=== PATIENT | male | born 1955 | race Caucasian/White ===

== ENCOUNTER 2021-11-30 10:35 | Inpatient (IN) ==
--- NOTE | 2021-11-30 11:26 | Emergency Department Note ---
History of Present Illness General Chief complaint: Mental Health Evaluation Stated complaint: MENTAL HEALTH EVALUATION Time Seen by Provider: 11/30/21 10:56 Source: patient Mode of arrival: ambulatory Limitations: no limitations History of Present Illness Provider complaint: Mental health evaluation This is a 66-year-old male presents emergency department for mental health evaluation. Patient was seen and evaluated here over the weekend. Patient does have a history of alcohol abuse but states with the help of his brother he removed all alcohol from his apartment over the weekend. He states he has not had any alcohol since Tuesday. Patient denies any history of DTs or inpatient alcohol withdrawal treatment. Patient states he does not feel shaky or sweaty. He states he is slightly nauseated but he also has not eaten today. Patient states he has had increased depression and anxiety. He denies any thoughts of suicide. Pt seen during a time of high acuity and national emergency pandemic while wea ring PPE. 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 Beliefs That Will Affect Care: None marital status: Single Current Living Situation: Alone Other Information That Helps Us Care for You: No Feels Safe at Home: Yes Safety Concerns: Feels Safe At This Time Assistive Devices: None Review of Systems A total of 10 systems reviewed and were otherwise negative All systems reviewed & are unremarkable except as noted in HPI & below Physical Exam Vital Signs Vital Signs - 24 hr 11/30/21 17:20 Blood Pressure [Right Arm] 181/102 H Blood Pressure Mean [Right Arm] 128 GENERAL: alert, well appearing, well nourished, no distress, non-toxic EYE EXAM: normal conjunctiva, PERRL and EOM's grossly intact OROPHARYNX: no exudate, no erythema, lips, buccal mucosa, and tongue normal and mucous membranes are moist NECK: supple, no nuchal rigidity, no adenopathy, non-tender LUNGS: Clear to auscultation. Normal chest wall mechanics, no w/r/r HEART: no murmurs, S1 normal and S2 normal ABDOMEN: abdomen soft, non-tender, normo-active bowel sounds, no masses, no rebound or guarding. BACK: Back is symmetrical on inspection and there is no deformity, no midline tenderness, no CVA tenderness. SKIN: no rashes and no bruising UPPER EXTREMITIES: upper extremities are grossly normal. FROM, nml pulses b/l. LOWER EXTREMITIES: No pitting edema. FROM, nml pulses b/l. NEURO EXAM: Normal sensorium, cranial nerves II-XII grossly intact, normal speech, no gross weakness of arms, no gross weakness of legs. No pronator drift. Finger to nose intact. Gross sensation intact. Course Course 1749: Patient continues to deny any new or evolving symptoms or concern for tremulousness or alcohol withdrawal. Patient states he did used to take HCTZ for his blood pressure but has not taken that in a long time. Administered Medications Amlodipine Besylate (Amlodipine Besylate 5 Mg Tab) 5 mg PO [facility] Stop: 12/31/21 08:59 Last Admin: 12/01/21 08:26 Dose: 5 mg Documented by: [id number] Enoxaparin Sodium (Enoxaparin Inj 40 Mg/0.4 Ml Syr) 40 mg SQ [facility] Stop: 12/31/21 08:59 Last Admin: 12/01/21 08:26 Dose: 40 mg Documented by: [id number] Folic Acid (Folic Acid 1 Mg Tab) 1 mg PO [facility] Stop: 12/30/21 20:59 Last Admin: 12/01/21 08:26 Dose: 1 mg Documented by: [id number] Admin: 11/30/21 21:45 Dose: 1 mg Documented by: [id number] Thiamine HCl 100 mg/ Syringe 10 mls @ 2 mls[facility] Stop: 12/30/21 20:59 Last Admin: 12/01/21 08:37 Dose: 2 mls/min Documented by: [id number] Admin: 11/30/21 21:44 Dose: 2 mls/min Documented by: [id number] Ceftriaxone Sodium 2,000 mg/ (Dextrose) 70 mls @ 100 mls/hr IV Q24H [facility]; Protocol Stop: 12/11/21 08:59 Last Infusion: 12/01/21 09:07 Dose: 0 mls/hr Documented by: [id number] Admin: 12/01/21 08:25 Dose: 100 mls/hr Documented by: [id number] Lisinopril (Lisinopril 10 Mg Tab) 10 mg PO HS [facility] Stop: 12/30/21 20:59 Last Admin: 11/30/21 21:44 Dose: 10 mg Documented by: [id number] Thiamine HCl (Thiamine Hcl 100 Mg Tab) 100 mg PO QAM [facility] Stop: 12/30/21 20:59 Last Admin: 12/01/21 08:37 Dose: Not Given Documented by: [id number] Admin: 11/30/21 21:44 Dose: 100 mg Documented by: [id number] Discontinued Medications Amlodipine Besylate (Amlodipine Besylate 5 Mg Tab) 5 mg PO NOW ONE Stop: 11/30/21 14:32 Last Admin: 11/30/21 14:33 Dose: 5 mg Documented by: [id number] Cefdinir (Cefdinir 300 Mg Cap) 300 mg PO ONE STA Stop: 11/30/21 13:13 Last Admin: 11/30/21 13:21 Dose: 300 mg Documented by: [id number] Hydrochlorothiazide (Hydrochlorothiazide 25 Mg Tab) 25 mg PO NOW STA Stop: 11/30/21 15:31 Last Admin: 11/30/21 16:14 Dose: 25 mg Documented by: [id number] Lorazepam (Lorazepam 1 Mg Tab) 1 mg SL NOW STA Stop: 11/30/21 13:21 Last Admin: 11/30/21 13:25 Dose: 1 mg Documented by: [id number] Potassium Chloride (Potassium Chloride Crtab 20 Meq Tabcr) 40 meq PO NOW STA Stop: 11/30/21 15:31 Last Admin: 11/30/21 16:14 Dose: 40 meq Documented by: [id number] Potassium Chloride (Potassium Chloride Crtab 20 Meq Tabcr) 40 meq PO NOW ONE Stop: 12/01/21 09:28 Last Admin: 12/01/21 10:05 Dose: 40 meq Documented by: [id number] Medical Decision Making Differential Diagnosis Differential diagnoses considered include mood disorder, infection, hypoglycemia, electrolyte abnormalities, cardiac sources, intracerebral event, toxicologic, neurologic, as well as others. Medical Records Attestation: I reviewed the patient's medical records. Home Medications Current Medication List: was personally reviewed by me Laboratory Data Attestation: I reviewed the patient's lab results. Result diagrams: 12/01/21 06:51 12/01/21 06:51 Lab Results 11/30/21 11/30/21 11/30/21 Range/Units 11:01 11:01 11:27 WBC (4.8-10.8) K/uL RBC (4.7-6.1) M/uL Hgb (14.0-18.0) g/dL Hct (42-52) % MCV (80-100) fL MCH (25-34) pg MCHC (32-36) g/dL RDW Std Deviation (36.4-46.3) fL RDW Coeff of Tiffanie (11.5-14.5) % Plt Count (130-400) K/uL MPV (7.4-10.4) fL Immature Gran % (Auto) % Neut % (Auto) % Lymph % (Auto) % [place] % (Auto) % Eos % (Auto) % Baso % (Auto) % Neut # (Auto) (1.4-6.5) K/uL Lymph # (Auto) (1.2-3.4) K/uL [place] # (Auto) (0.11-0.59) K/uL Eos # (Auto) (0-0.5) K/uL Baso # (Auto) (0-0.2) K/uL Immature Gran # (Auto) (0.00-0.02) K/uL Sodium (136-145) mmol/L Potassium (3.5-5.1) mmol/L Chloride (98-107) mmol/L Carbon Dioxide (21-32) mmol/L Anion Gap (3-11) BUN (6-23) mg/dl Creatinine (0.6-1.4) mg/dl Est Cr Clr Drug Dosing Est GFR ( Amer) ml/min Est GFR (Non-Af Amer) ml/min BUN/Creatinine Ratio (10-20) Glucose (70-99(Fasting)) mg/dl Calcium (8.5-10.1) mg/dl Magnesium (1.7-2.4) mg/dl Total Bilirubin (0.2-1.0) mg/dl AST (13-39) U/L ALT (7-52) U/L Alkaline Phosphatase (34-104) U/L Total Protein (6.0-8.3) gm/dl Albumin (3.4-5.0) gm/dl Globulin (2.5-4.0) gm/dl Albumin/Globulin Ratio (0.9-2) TSH (0.300-4.500) uIu/ml Urine Color Dark Yellow Urine Appearance Clear (Clear) Urine pH 5.5 (4.5-7.5) Ur Specific [place] 1.018 (1.000-1.030) Urine Protein Negative (Negative) Urine Glucose (UA) Negative (Negative) Urine Ketones 2+ H (Negative) Urine Blood Negative (Negative) Urine Nitrite Positive A (Negative) Urine Bilirubin Negative (Negative) Urine Urobilinogen Negative (Negative) Ur Leukocyte Esterase Trace H (Negative) Urine WBC (Auto) 5-10 H (0-5) /hpf Urine RBC (Auto) 0-4 (0-4) /hpf U Hyaline Cast (Auto) 1-5 (0-5) /lpf U Epithel Cells (Auto) 5-10 H (0-5) /lpf Urine Bacteria (Auto) 4+ H (Negative) Salicylates (3.0-30) mg/dl Urine Opiates Screen Neg (Neg) Ur Methadone, Qual Neg (Neg) Acetaminophen (10-30) ug/ml Urine Barbiturates Neg (Neg) Ur Phencyclidine (PCP) Neg (Neg) U Amphetamin/Meth Scrn Neg (Neg) MDMA (Ecstasy) Screen Neg (Neg) U Benzodiazepines Scrn Neg (Neg) Ur Cocaine Metabolite Neg (Neg) U Marijuana (THC) Screen Neg (Neg) Ethyl Alcohol mg/dL (<10.0) mg/dl SARS-CoV-2, RNA, NAAT NEGATIVE (NEGATIVE) 11/30/21 11/30/21 11/30/21 Range/Units 11:37 11:37 11:37 WBC 6.44 (4.8-10.8) K/uL RBC 4.66 L (4.7-6.1) M/uL Hgb 17.0 (14.0-18.0) g/dL Hct 47.7 (42-52) % MCV 102.4 H (80-100) fL MCH 36.5 H (25-34) pg MCHC 35.6 (32-36) g/dL RDW Std Deviation 51.2 H (36.4-46.3) fL RDW Coeff of Tiffanie 13.7 (11.5-14.5) % Plt Count 115 L (130-400) K/uL MPV 9.8 (7.4-10.4) fL Immature Gran % (Auto) 0.2 % Neut % (Auto) 80.3 % Lymph % (Auto) 11.2 % [place] % (Auto) 7.8 % Eos % (Auto) 0.3 % Baso % (Auto) 0.2 % Neut # (Auto) 5.18 (1.4-6.5) K/uL Lymph # (Auto) 0.72 L (1.2-3.4) K/uL [place] # (Auto) 0.50 (0.11-0.59) K/uL Eos # (Auto) 0.02 (0-0.5) K/uL Baso # (Auto) 0.01 (0-0.2) K/uL Immature Gran # (Auto) 0.01 (0.00-0.02) K/uL Sodium 141 (136-145) mmol/L Potassium 3.8 (3.5-5.1) mmol/L Chloride 103 (98-107) mmol/L Carbon Dioxide 25 (21-32) mmol/L Anion Gap 13 H (3-11) BUN 18 (6-23) mg/dl Creatinine 0.89 (0.6-1.4) mg/dl Est Cr Clr Drug Dosing Not Reportable Est GFR ( Amer) 102.5 ml/min Est GFR (Non-Af Amer) 88.5 ml/min BUN/Creatinine Ratio 20.2 H (10-20) Glucose 101 H (70-99(Fasting)) mg/dl Calcium 9.8 (8.5-10.1) mg/dl Magnesium (1.7-2.4) mg/dl Total Bilirubin 1.9 H D (0.2-1.0) mg/dl AST 36 (13-39) U/L ALT 33 (7-52) U/L Alkaline Phosphatase 130 H (34-104) U/L Total Protein 7.3 (6.0-8.3) gm/dl Albumin 4.6 (3.4-5.0) gm/dl Globulin 2.7 (2.5-4.0) gm/dl Albumin/Globulin Ratio 1.7 (0.9-2) TSH 1.799 (0.300-4.500) uIu/ml Urine Color Urine Appearance (Clear) Urine pH (4.5-7.5) Ur Specific [place] (1.000-1.030) Urine Protein (Negative) Urine Glucose (UA) (Negative) Urine Ketones (Negative) Urine Blood (Negative) Urine Nitrite (Negative) Urine Bilirubin (Negative) Urine Urobilinogen (Negative) Ur Leukocyte Esterase (Negative) Urine WBC (Auto) (0-5) /hpf Urine RBC (Auto) (0-4) /hpf U Hyaline Cast (Auto) (0-5) /lpf U Epithel Cells (Auto) (0-5) /lpf Urine Bacteria (Auto) (Negative) Salicylates (3.0-30) mg/dl Urine Opiates Screen (Neg) Ur Methadone, Qual (Neg) Acetaminophen (10-30) ug/ml Urine Barbiturates (Neg) Ur Phencyclidine (PCP) (Neg) U Amphetamin/Meth Scrn (Neg) MDMA (Ecstasy) Screen (Neg) U Benzodiazepines Scrn (Neg) Ur Cocaine Metabolite (Neg) U Marijuana (THC) Screen (Neg) Ethyl Alcohol mg/dL (<10.0) mg/dl SARS-CoV-2, RNA, NAAT (NEGATIVE) 11/30/21 11/30/21 11/30/21 Range/Units 11:37 11:37 11:37 WBC (4.8-10.8) K/uL RBC (4.7-6.1) M/uL Hgb (14.0-18.0) g/dL Hct (42-52) % MCV (80-100) fL MCH (25-34) pg MCHC (32-36) g/dL RDW Std Deviation (36.4-46.3) fL RDW Coeff of Tiffanie (11.5-14.5) % Plt Count (130-400) K/uL MPV (7.4-10.4) fL Immature Gran % (Auto) % Neut % (Auto) % Lymph % (Auto) % [place] % (Auto) % Eos % (Auto) % Baso % (Auto) % Neut # (Auto) (1.4-6.5) K/uL Lymph # (Auto) (1.2-3.4) K/uL [place] # (Auto) (0.11-0.59) K/uL Eos # (Auto) (0-0.5) K/uL Baso # (Auto) (0-0.2) K/uL Immature Gran # (Auto) (0.00-0.02) K/uL Sodium (136-145) mmol/L Potassium (3.5-5.1) mmol/L Chloride (98-107) mmol/L Carbon Dioxide (21-32) mmol/L Anion Gap (3-11) BUN (6-23) mg/dl Creatinine (0.6-1.4) mg/dl Est Cr Clr Drug Dosing Est GFR ( Amer) ml/min Est GFR (Non-Af Amer) ml/min BUN/Creatinine Ratio (10-20) Glucose (70-99(Fasting)) mg/dl Calcium (8.5-10.1) mg/dl Magnesium 1.8 (1.7-2.4) mg/dl Total Bilirubin (0.2-1.0) mg/dl AST (13-39) U/L ALT (7-52) U/L Alkaline Phosphatase (34-104) U/L Total Protein (6.0-8.3) gm/dl Albumin (3.4-5.0) gm/dl Globulin (2.5-4.0) gm/dl Albumin/Globulin Ratio (0.9-2) TSH (0.300-4.500) uIu/ml Urine Color Urine Appearance (Clear) Urine pH (4.5-7.5) Ur Specific [place] (1.000-1.030) Urine Protein (Negative) Urine Glucose (UA) (Negative) Urine Ketones (Negative) Urine Blood (Negative) Urine Nitrite (Negative) Urine Bilirubin (Negative) Urine Urobilinogen (Negative) Ur Leukocyte Esterase (Negative) Urine WBC (Auto) (0-5) /hpf Urine RBC (Auto) (0-4) /hpf U Hyaline Cast (Auto) (0-5) /lpf U Epithel Cells (Auto) (0-5) /lpf Urine Bacteria (Auto) (Negative) Salicylates < 3.0 L (3.0-30) mg/dl Urine Opiates Screen (Neg) Ur Methadone, Qual (Neg) Acetaminophen < 3 L (10-30) ug/ml Urine Barbiturates (Neg) Ur Phencyclidine (PCP) (Neg) U Amphetamin/Meth Scrn (Neg) MDMA (Ecstasy) Screen (Neg) U Benzodiazepines Scrn (Neg) Ur Cocaine Metabolite (Neg) U Marijuana (THC) Screen (Neg) Ethyl Alcohol mg/dL < 10.0 (<10.0) mg/dl SARS-CoV-2, RNA, NAAT (NEGATIVE) Imaging Data Radiologist's Impression: Chest X-Ray 11/30/21 17:53 XR chest 1V portable CLINICAL HISTORY: htn. COMPARISON STUDY: 10/20/2018 TECHNIQUE: 1 view of the chest FINDINGS: Single frontal view of the chest demonstrates the cardiomediastinal silhouette to be within normal limits. The lungs are clear of alveolar opacities. There is no evidence for pleural effusion. There is no evidence for vascular congestion. There is no acute osseous pathology. IMPRESSION: 1. No acute cardiopulmonary disease. ACT 112: Negative or not required by law. Electronically signed by: Tommy Elias M.D. 11/30/2021 6:07 PM ECG Data Attestation: I personally reviewed and interpreted this ECG as follows: Indication: + other Rate (beats per minute): 105 Rhythm: + sinus tachycardia ECG Intervals/blocks: + Normal QRS and + Normal QT ECG [place]: + Normal ECG ST segments: + Nonspecific ST abnormalities ECG Findings: + PVCs Additional Comments: baseline artifact noted MDM Narrative An order was placed for continuous cardiac monitoring. The monitor shows a rate of _70_ with _normal sinus_ rhythm. This is a 66-year-old male brought in for mental health evaluation due to concern for depression and anxiety. Patient does have a history of alcohol abuse but has not drank in several days. No evidence for acute alcohol withdrawal. Patient's other labs reassuring. Patient found to be significantly hypertensive in the emergency room. He was initially given Ativan given his r eported anxiety. Additional antihypertensive medications were also added including a dose of HCTZ which he stated he took previously. Unfortunately we were unable to order the patient's blood pressure reading to an acceptable level for admission to the mental health unit. Case discussed with the hospitalist for additional evaluation and management of his blood pressure and consultation to psychiatry. Patient was asymptomatic throughout and I do not suspect hypertensive urgency and no evidence for hypertensive emergency. Impression & Plan Depression, Alcohol use disorder, Anxiety, Hypertension Discharge Plan Visit Data Chief Complaint: Mental Health Evaluation Stated Complaint: MENTAL HEALTH EVALUATION ED Provider: Belen Lemus Discharge Problem: Depression, Alcohol use disorder, Anxiety, Hypertension Patient Disposition: Admitted As Inpatient Discharge Instructions Interventions: ED Discharge Assessment Last Done: 11/30/21 21:20 Discharge Problem: Depression Qualifiers: Depression Type: unspecified Qualified Code(s): F32.A - Depression, unspecified Hypertension Qualifiers: Hypertension type: primary hypertension Qualified Code(s): I10 - Essential (primary) hypertension
[2021-11-30 11:50] LABS: Basophils # (auto) 0.01 K/uL (0-0.2); Basophils % (auto) 0.2 %; Eosinophils # (auto) 0.02 K/uL (0-0.5); Eosinophils % (auto) 0.3 %; Hematocrit (blood only) 47.7 % (42-52); Immature Granulocytes # (auto) 0.01 K/uL (0.00-0.02); Immature Granulocytes % (auto) 0.2 %; Lymphocytes # (auto) 0.72 K/uL (1.2-3.4); Lymphocytes % (auto) 11.2 %; Mean Corpuscular Hemoglobin 36.5 pg (25-34); Mean Corpuscular Hgb Conc 35.6 g/dL (32-36); Mean Corpuscular Volume 102.4 fL (80-100); Mean Platelet Volume 9.8 fL (7.4-10.4); Monocytes % (auto) 7.8 %; Neutrophils # (auto) 5.18 K/uL (1.4-6.5); Neutrophils % (auto) 80.3 %; Platelet Count 115 K/uL (130-400); RDW Coefficient of Variation 13.7 % (11.5-14.5); RDW Standard Deviation 51.2 fL (36.4-46.3); Red Blood Count 4.66 M/uL (4.7-6.1); White Blood Count 6.44 K/uL (4.8-10.8)
[2021-11-30 12:14] LABS: Acetaminophen < 3 ug/ml (10-30); Salicylate < 3.0 mg/dl (3.0-30)
[2021-11-30 12:26] LABS: Appearance Urine Clear (Clear); Bacteria Urine Automated 4+ (Negative); Bilirubin Urine Negative (Negative); Blood Urine Negative (Negative); Color Urine Dark Yellow; Glucose Urine UA Negative (Negative); Ketones Urine 2+ (Negative); Leukocyte Esterase Urine Trace (Negative); Nitrite Urine Positive (Negative); Protein Urine Negative (Negative); RBC Urine Automated 0-4 /hpf (0-4); Specific Gravity Urine 1.018 (1.000-1.030); Urobilinogen Urine Negative (Negative); pH Urine 5.5 (4.5-7.5)
[2021-11-30] MEDS ORDERED: CEFDINIR 300 MG CAP PO STA (13:12)
[2021-11-30 13:16] LABS: Amphetamines+Metham, Urine Neg (Neg); Barbiturates, Urine Neg (Neg); Benzodiazepine, Urine Neg (Neg); Cocaine, Urine Neg (Neg); MDMA (Ecstacy), Urine Neg (Neg); Methadone, Urine Neg (Neg); Opiate, Urine Neg (Neg); Phencyclidine, Urine Neg (Neg)
[2021-11-30] MEDS ORDERED: LORazepam 1 MG TAB SL STA (13:20)
[2021-11-30 13:48] LABS: Alanine Aminotransferase 33 U/L (7-52); Albumin Globulin Ratio 1.7 (0.9-2); Albumin Level 4.6 gm/dl (3.4-5.0); Alkaline Phosphatase 130 U/L (34-104); Anion Gap 13 (3-11); Aspartate Aminotransferase 36 U/L (13-39); BUN Creatinine Ratio 20.2 (10-20); Bilirubin,Total 1.9 mg/dl (0.2-1.0); Blood Urea Nitrogen 18 mg/dl (6-23); Calcium 9.8 mg/dl (8.5-10.1); Carbon Dioxide 25 mmol/L (21-32); Chloride 103 mmol/L (98-107); Est GFR (African American) 102.5 ml/min; Est GFR (Non-African American) 88.5 ml/min; Globulin 2.7 gm/dl (2.5-4.0); Glucose 101 mg/dl (70-99(Fasting)); Potassium 3.8 mmol/L (3.5-5.1); Sodium 141 mmol/L (136-145); Total Protein 7.3 gm/dl (6.0-8.3)
[2021-11-30] MEDS ORDERED: amLODIPine BESYLATE 5 MG TAB PO ONE (14:31)
[2021-11-30] MEDS ORDERED: POTASSIUM CHLORIDE CRTAB 20 MEQ TABCR PO STA (15:30)
[2021-11-30] MEDS ORDERED: hydroCHLOROthiazide 25 MG TAB PO STA (15:30)
--- NOTE | 2021-11-30 18:08 | XRay Report ---
XR chest 1V portable CLINICAL HISTORY: htn. COMPARISON STUDY: 10/20/2018 TECHNIQUE: 1 view of the chest FINDINGS: Single frontal view of the chest demonstrates the cardiomediastinal silhouette to be within normal li mits. The lungs are clear of alveolar opacities. There is no evidence for pleural effusion. There is no evidence for vascular congestion. There is no acute osseous pathology. IMPRESSION: 1. No acute cardiopulmonary disease. ACT 112: Negative or not required by law. Electronically signed by: Tommy Elias M.D. 11/30/2021 6:07 PM
--- NOTE | 2021-11-30 19:33 | History & Physical Report ---
Date of Service November 30, 2021 Assessment & Plan (1) Depression: Plan: Depression Anxiety Reports infrequent suicidal thoughts but stated he does not dwell on it or have active plans Order one to one for now till psych evaluation Patient has not seen psychiatrist before and will like to be evaluated Psych consult Will defer management to psychiatry. (2) Alcohol abuse: Plan: Counseled regarding alcohol abuse He stated he will like to quit. He is interested in inpatient alcohol rehab CM consult about this [facility] protocol for alcohol withdrawal (3) Hypertensive urgency: Plan: Reports he had been told he has hypertension in the past and was put on antihypertensive once. However, has not been on any medicine for years or ever seen his PCP Got HCTZ and amlodipine in ER Continue amlodipine. Start on lisinopril Monitor blood pressure and optimize as appropriate Will continue these for now Patient counseled on need for med adherence and PCP follow up (4) UTI (urinary tract infection): Plan: Urine culture from 11/28/21 growing GNR Got cefdinir in ER Continue ceftriaxone and follow up speciation and sensitivities (5) Scrotal hernia: Plan: Patient has a massive scrotal hernia. Reports this has been worsening for years Stated he will want it evaluated. I explained that I will get surgery to evaluate him but if surgical treatment is needed, it will likely be deferred till other active medical issues are addressed. Get Gen surg consult. (6) Tobacco use: Plan: Counseled about smoking cessation Offered nicotine replacement while inpatient. He stated he will let us know if he decides to get it. Lovenox sq for DVT PPx Code status- Full code History of Present Illness Chief Complaint: Anxiety, depression. Alcohol withdrawal Primary Care Provider: NO PCP 66-year-old man with history of alcohol abuse, active smoker who presents to the ER reporting increased anxiety and depression. Patient was recently seen in the ER over the weekend and discharged home. Patient reports he drinks about 6-8 wine/liquor daily. Last drink was 2 days ago [Tuesday afternoon]. Reports that he is in the middle of moving apartments. Reports some mild tremors earlier that is currently controlled. Denied any headache, dizziness or hallucinations. Denied nausea, vomiting, abd pain Reports he has been having anxiety and depression for the past couple of months but has been worsening recently. Reports depression, reports occasional suicidal thoughts but states that he does not dwell on it or have any active plans. Denies homicidal ideation. Reports that some days he feels lazy to get out of bed. Reports he gets good sleep but usually in short bouts. Reports he has good appetite when he goes out to eat but not at home. 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 Reports he has not seen any psychiatrist in the past for his anxiety and depression but open to being evaluated by psychiatrist now. Patient smokes half a pack of cigarettes per day. Denies illicit drug use. Reports family history of high blood pressure in both parents Reports he has had some surgeries in the past for cyst excision in neck. Patient denies any home medication at this time. Reported he has not seen PCP in years. Reports scrotal hernia that has been worsening over the past couple of years Allergies Allergy/AdvReac Type Severity Reaction Status Date / Time No Known Allergies Allergy Verified 11/28/21 22:49 Home Medications Medication Instructions Recorded Confirmed Type No Known Home Medications 11/28/21 11/28/21 History Past Med/Surg History Social History Smoking Status: Current every day smoker Tobacco Type: Cigarettes Preferred Language: Pashto Feels Safe at Home: Yes Review of Systems Constitutional: no fever and no chills Interrupted sleep Eyes: no blind spots, no eye pain and no worsening vision Ear, Nose, Mouth, Throat: no ear discharge, no tinnitus, no hearing loss and no dizziness Respiratory: no cough, no dyspnea and no sputum production Cardiovascular: no chest pain at rest, no orthopnea, no lightheadedness and no edema Gastrointestinal: no abdominal pain, no nausea, no vomiting and no diarr hea/loose stools Genitourinary: + scrotal swelling and + problem reported (change in urine color); no dysuria or no urinary frequency Neurologic: no loss of sensation, no seizure-like activity and no headache(s) Psychiatric: + depression and + anxiety Physical Exam Constitutional: + well hydrated; no acute distress Eyes: PERRL, conjunctivae normal, anicteric sclerae ENMT: external ear and nose normal, oropharynx normal Respiratory: normal respiratory effort, lungs clear to auscultation Cardiovascular: Rate/Rhythm: regular rate and regular rhythm S1 S2 Gastrointestinal (Abdomen): normal bowel sounds, soft, nontender, no hepatosplenomegaly Musculoskeletal: no cyanosis or clubbing, extremities motor strength 5/5 No pedal edema Neurologic: PERRL, EOMI, accommodation nl, no face palsy, no dysarthria Psychiatric: Orientation: alert and oriented x 3 Flat affect Genitourinary: Massive scrotal hernia. Results & Data Results & Data ([facility]) Vital Signs (Past 12 Hours) Vital Signs Temp Pulse Resp BP Pulse Ox 11/30/21 17:20 181/102 H 11/30/21 16:00 73 16 178/113 H 96 11/30/21 14:56 187/126 H 11/30/21 14:21 207/127 H 11/30/21 13:44 205/118 H 11/30/21 13:22 36.7 C 76 18 212/137 H 95 11/30/21 11:07 36.8 C 91 H 18 183/124 H 95 Laboratory Results Abnormal lab results 11/30/21 11/30/21 11/30/21 Range/Units 11:01 11:37 11:37 RBC 4.66 L (4.7-6.1) M/uL MCV 102.4 H (80-100) fL MCH 36.5 H (25-34) pg RDW Std Deviation 51.2 H (36.4-46.3) fL Plt Count 115 L (130-400) K/uL Lymph # (Auto) 0.72 L (1.2-3.4) K/uL Anion Gap 13 H (3-11) BUN/Creatinine Ratio 20.2 H (10-20) Glucose 101 H (70-99(Fasting)) mg/dl Total Bilirubin 1.9 H D (0.2-1.0) mg/dl Alkaline Phosphatase 130 H (34-104) U/L Urine Ketones 2+ H (Negative) Urine Nitrite Positive A (Negative) Ur Leukocyte Esterase Trace H (Negative) Urine WBC (Auto) 5-10 H (0-5) /hpf U Epithel Cells (Auto) 5-10 H (0-5) /lpf Urine Bacteria (Auto) 4+ H (Negative) Salicylates (3.0-30) mg/dl Acetaminophen (10-30) ug/ml 11/30/21 Range/Units 11:37 RBC (4.7-6.1) M/uL MCV (80-100) fL MCH (25-34) pg RDW Std Deviation (36.4-46.3) fL Plt Count (130-400) K/uL Lymph # (Auto) (1.2-3.4) K/uL Anion Gap (3-11) BUN/Creatinine Ratio (10-20) Glucose (70-99(Fasting)) mg/dl Total Bilirubin (0.2-1.0) mg/dl Alkaline Phosphatase (34-104) U/L Urine Ketones (Negative) Urine Nitrite (Negative) Ur Leukocyte Esterase (Negative) Urine WBC (Auto) (0-5) /hpf U Epithel Cells (Auto) (0-5) /lpf Urine Bacteria (Auto) (Negative) Salicylates < 3.0 L (3.0-30) mg/dl Acetaminophen < 3 L (10-30) ug/ml (1) Depression Active/Remission status: currently active Depression Type: major depressive disorder Major depression episode severity: mild Major depression recurrence: recurrent Qualified Code(s): F33.0 - Major depressive disorder, recurrent, mild
[2021-11-30] MEDS ORDERED: ATIVAN IV ALCOHOL WITHDRAWL IV PRN (20:46)
[2021-11-30] MEDS ORDERED: LORazepam 1 MG TAB PO PRN ×2 (20:46)
[2021-11-30] MEDS ORDERED: ACETAMINOPHEN 325 MG TAB PO PRN (20:46)
[2021-11-30] MEDS ORDERED: LORazepam 2 MG/1 ML VIAL IV PRN ×3 (20:46)
[2021-11-30] MEDS ORDERED: Patient's HEIGHT &/or WEIGHT Needed SCH (21:00)
[2021-11-30] MEDS ORDERED: Patient's HEIGHT &/or WEIGHT Needed ONE (21:15)
--- NOTE | 2021-11-30 21:31 | Surgery Consultation ---
Date of Consultation November 30, 2021 Assessment & Plan (1) Scrotal hernia: The patient has been admitted on the hospitalist service for treatment of his depression, alcohol use, hypertensive urgency, and urinary tract infection. I have explained to the patient in the absence of pain or signs or symptoms of bowel obstruction that emergent surgical correction of this hernia is not indicated. I explained the patient that his other medical issues listed above will take precedence. Is a particular importance that patient's urinary tract infection be treated adequately prior to any hernia repair as a hernia repair may require the utilization of mesh. I discussed with the patient that once his other issues have been adequately treated he can follow-up with Dr. Michael of [facility] group general surgery electively at which time consideration can be given to fixing the patient's hernia. Please contact our service if patient is to develop any signs or symptoms of incarceration or strangulation of his hernia. Supervising Physician Co-Signing Physician Notes I personally saw and evaluated the patient with Robin Carranza PA-C and agree with the assessment and plan. 66-year-old male with multiple medical problems with incidental inguinal scrotal hernia on the right He has no signs of any incarceration or bowel obstruction associated with his hernia It is largely asymptomatic other than its size No plans for any operative intervention this admission Surgery will sign off at this time, please call with any questions or concerns History of Present Illness Reason for Consultation: Inguinal/scrotal hernia Attending Physician: Janneth Jauregui MD History of Present Illness Is a 66-year-old male with an underlying history of alcohol abuse, anxiety, and depression. Patient presented to the emergency department earlier today as patient has been having worsening issues with anxiety and depression and reportedly made concerning statements to a family member something the need for evaluation. The patient has subsequently been admitted to the hospital on the [facility]ist service. For his depression a psychiatry consultation has been requested. The patient also has a reported history of alcohol abuse and he is being monitored for signs and symptoms of alcohol withdrawal. In addition to the above noted symptoms the patient was found to have a urinary tract infection for which he is currently being treated along with hypertensive urgency which he has had treatment initiated. General surgery has been asked to evaluate the patient for a large inguinal hernia encompassing nearly his entire scrotum. Patient says that this hernia has been present for several years and has been getting larger over the same time. Patient says that it really does not cause him pain and to the best of his knowledge she has never had a small bowel obstruction related to this. He denies any nausea or vomiting. He does note that due to the large size of the hernia makes it quite difficult to use the restroom. He notes that it prevents him from voiding while standing up as he has to sit down on the toilet in order to void. He notes large size of the hernia has caused the shaft of his penis to retract into his scrotum/hernia and also due to the size of the hernia he is having difficulty with hygiene particularly after using the restroom. Because of these issues the patient would like surgical evaluation and consideration of repair. Since arrival to the emergency department and hospitalization today the patient has had a chest x-ray that showed no evidence of pneumonia. A CBC revealed whit e blood cell count, hemoglobin and hematocrit were within the normal range. Platelet count was noted to be 115,000. A chemistry profile showed sodium, potassium, BUN, and creatinine were all normal. Patient's magnesium was noted be normal. He had a slight elevation of his total bilirubin at 1.9. His alkaline phosphatase was slightly elevated at 130. There is no elevation of patient's transaminases. His albumin was also noted to be normal as was his TSH. Urinalysis at this time was concerning for infection. Patient did have a toxicology screen that was negative for all substances tested and his alcohol level is also not elevated. A COVID test was negative. At the time of my interview the patient denied any nausea or vomiting. He did not have any pain related to his hernia and he was in no distress. Allergies Allergy/AdvReac Type Severity Reaction Status Date / Time No Known Allergies Allergy Verified 11/28/21 22:49 Home Medications Medication Instructions Recorded Confirmed Type No Known Home Medications 11/28/21 11/28/21 History Patient History Social History Smoking Status: Current every day smoker Tobacco Type: Cigarettes Cigarettes Per Day: 20; Hx Alcohol Use: Yes Alcohol type: wine and hard liquor Hx Substance Use: No Preferred Language: Cypriot Communication Ability: Effective Physical Education Department Chair Required: No Beliefs That Will Affect Care: None Current Living Situation: Alone Other Information That Helps Us Care for You: No Feels Safe at Home: Yes Safety Concerns: Feels Safe At This Time Review of Systems Constitutional: no fever and no chills Eyes: no diplopia Ear, Nose, Mouth, Throat: no ear pain Respiratory: no cough and no dyspnea Cardiovascular: no chest pain Gastrointestinal: no abdominal pain, no nausea, no vomiting, no change in bowel habits and no diarrhea/loose stools Genitourinary: + as per Subjective / HPI and + problem reported (Difficulty urinating due to hernia); no dysuria Musculoskeletal: no back pain Integumentary: no rash Neurologic: no localized weakness Psychiatric: + depression and + anxiety Physical Exam Physical Exam: Patient's scrotum was examined. Patient had a massive hernia encompassing nearly his entire scrotum. The hernia was quite large causing retraction of patient's penile shaft into the hernia/scrotum. There were no areas of erythema, cuts, excoriations, or drainage. The hernia was nonreducible. It was nontender to palpation. Constitutional: WD/WN, vitals as above Eyes: no conjunctival abnormality ENMT: Ears: no hearing impairment and no external ear abnormality Neck: trachea midline Respiratory: normal respiratory effort; no respiratory distress and no labored breathing Cardiovascular: Rate/Rhythm: regular rate and regular rhythm Gastrointestinal (Abdomen): Soft, nontender, nondistended. Please see above for description of patient's hernia Musculoskeletal: No calf tenderness Skin: no rashes Neurologic: moves all extremities Psychiatric: Orientation: alert and oriented x 3 Results & Data ([facility]) Vital Signs (Past 12 Hours) Vital Signs Temp Pulse Pulse Resp BP BP Pulse Ox 11/30/21 21:20 74 18 187/98 H 11/30/21 20:53 36.8 C 98 H 16 153/105 H 94 11/30/21 17:20 181/102 H 11/30/21 16:00 73 16 178/113 H 96 11/30/21 14:56 187/126 H 11/30/21 14:21 207/127 H 11/30/21 13:44 205/118 H 11/30/21 13:22 36.7 C 76 18 212/137 H 95 11/30/21 11:07 36.8 C 91 H 18 183/124 H 95 PG Care Time/CCT Total # of Minutes Spent Total Time Spent with Patient: Total time spent is greater than 50% in coordination of care (as documented) at patient's floor/unit and/or counseling patient: Coding Level of Care Code 42021 Inpt Consult Level 5 Diagnoses Scrotal hernia K40.90
[2021-11-30] MEDS: lisinopril 10 MG TAB PO SCH (21:44)
[2021-11-30] MEDS: THIAMINE HCL 100 MG TAB PO SCH (21:44)
[2021-11-30] MEDS: THIAMINE HCL 100 MG in SYRINGE 9 ML IV SCH (21:44)
[2021-11-30] MEDS: FOLIC ACID 1 MG TAB PO SCH (21:45)
[2021-12-01 07:29] LABS: Hemoglobin 15.6 g/dL (14.0-18.0); Mean Corpuscular Hemoglobin 35.2 pg (25-34); Mean Corpuscular Volume 103.8 fL (80-100); Red Blood Count 4.43 M/uL (4.7-6.1); White Blood Count 6.13 K/uL (4.8-10.8)
[2021-12-01 07:30] LABS: Mean Corpuscular Hgb Conc 33.9 g/dL (32-36); Mean Platelet Volume 10.2 fL (7.4-10.4); Platelet Count 107 K/uL (130-400); RDW Standard Deviation 53.2 fL (36.4-46.3)
[2021-12-01 07:50] LABS: BUN Creatinine Ratio 17.9 (10-20); Calcium 9.2 mg/dl (8.5-10.1); Creatinine Clr Calc Pharmacy 74.4 ml/min; Est GFR (Non-African American) 60.4 ml/min; Potassium 3.4 mmol/L (3.5-5.1)
[2021-12-01] MEDS: cefTRIAXone SODIUM 2,000 MG in DEXTROSE 5% 50 ML IV SCH (08:25)
[2021-12-01] MEDS: ENOXAPARIN INJ 40 MG/0.4 ML SYR SQ SCH (08:26)
[2021-12-01] MEDS: amLODIPine BESYLATE 5 MG TAB PO SCH (08:26)
[2021-12-01] MEDS: FOLIC ACID 1 MG TAB PO SCH (08:26)
[2021-12-01] MEDS: THIAMINE HCL 100 MG TAB PO SCH (08:37)
[2021-12-01] MEDS: THIAMINE HCL 100 MG in SYRINGE 9 ML IV SCH (08:37)
[2021-12-01] MEDS ORDERED: POTASSIUM CHLORIDE CRTAB 20 MEQ TABCR PO ONE (09:27)
--- NOTE | 2021-12-01 16:10 | Psychiatric Consultation ---
Date of Consultation December 01, 2021 Impression / Recommendations Impression This is a 66 yo with a history of alcohol use admitted medically. Diagnostically consistent with alcohol use disorder as well as unspecified depression likely a combination of substance-induced as well as MDD, mild. At this point risk of harm is low given denial of SI with most significant modifiable risk factor for reducing acute and chronic risk is substance use treatment. He is currently contemplative about potentially cutting down on some of his alcohol intake but would like to continue drinking from time to time. They do not meet criteria for inpatient psychiatric treatment at this time rather recommendation is for residential substance use treatment. They are not interested in residential treatment at this time but he is going to consider outpatient services at [facility] to help with substance use and is agreeable to medication assisted treatment. Liver enzymes reviewed and stable for treatment with naltrexone and no concurrent opioids. He also would like to start and consented to sertraline for depression. Reviewed side effects including but not limited to: GI, HOWARD, sexual side effects. -Psychiatric liason will provide resources on local mental health services and substance use services and attempt to set them up with outpatient services if he agrees to this -Patient is not an imminent danger to self or others and does not meet criteria for psychiatric hospitalization, psychiatrically safe for discharge once medically stable -discontinue 1-on-1 -Continue AWSS as well as thiamine and folic acid -Starting naltrexone 50mg qd for alcohol use disorder, should have LFTs repeated in 1 month -Starting sertraline 25mg qd, increase to 50mg in 5 days if he is tolerating this well (1) MDD (major depressive disorder), recurrent episode, mild: (2) Alcohol use disorder: (3) Alcohol withdrawal: see above Risk Factors Assessment Male: Yes : Yes Do You Have Access To A Gun?: No (recently gave them to his brother ) Mental Health Diagnoses: Yes Substance Use Disorders: Yes Previous Attempt: No Family History of Suicide: No Previous Psychiatric Hospitalization: No Hopelessness: No Protective Factors Assessment Employed: Yes (On leave from work d/t MH issues) Supportive Family: Yes Psych History Identifying Data Dionisio Lopez is a 66 yo man admitted medically for alcohol withdrawal and depression. Psychiatry was consulted for risk assessment and recommendations. Chief Complaint "I still to be able to have champagne at events and have a wine with a steak din ner". History of Present Illness Bill presented to the ED twice in recent days for worsening depression. On his initial presentation on 11/28/21 he was visibly intoxicated and once clinically sober decided he would like to discharge to outpatient level of care and engaged in safety planned. he represented on 11/30/21 after two days of sobriety but with nausea and BP changes consistent with withdrawal and with ongoing depression and feeling overwhelmed noting to ED CM "I can't function, I can't seem to do anything". Today Carmine rates his mood as "ok" noting some depression but that it is quite mild. His PHQ-9 score was 7 with score of 0 for Q9. States his biggest issue has been low motivation and that he finds himself lying in bed most of the day. He was considering inpatient psych treatment he states because he was told he could do that "72 hour option" but now is less certain that's what he wants. Reviewed that LOS varies with 72 hours being minimum but more typically is 5-7 days. Reviewed other treatment options as well. He doesn't want residential alcohol use treatment, is willing to consider outpatient dual diagnosis therapy[facility]. He has court-mandated therapy after a DUI inApril 2019 but has missed recent appointments due to his work schedule, only had 2 sessions so far. He's been drinking 6-8 glasses of wine or hard liquor daily. He denies current SI, endorses hx of passive SI intermittently throughout his life especially when he sees it mentioned on the news or after the of friend by suicide last year but none recently. Past Psychiatric History Current Psychiatric Diagnosis: Depression Outpatient Services: [facility] for D&A after DUI Previous Psych Admissions: n/a Do You Have Access To A Gun?: No (recently gave them to his brother ) History of Previous Suicide Attempt: No Past Medication Trials: denies any prior psych med trials Allergies Allergy/AdvReac Type Severity Reaction Status Date / Time No Known Allergies Allergy Verified 11/28/21 22:49 Home Medications Medication Instructions Recorded Confirmed Type No Known Home Medications 11/28/21 11/28/21 History Substance Abuse History see HPI-alcohol with hx multiple DUIs Personal History Living Arrangements: Apartment 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[employer]) Beliefs That Will Affect Care: None Patient History Social History Smoking Status: Current every day smoker Tobacco Type: Cigarettes Cigarettes Per Day: 20; Hx Alcohol Use: Yes Alcohol type: wine and hard liquor Hx Substance Use: No Preferred Language: Wolof Communication Ability: Effective Behavioral Health Worker Required: No Beliefs That Will Affect Care: None marital status: Single Current Living Situation: Alone Other Information That Helps Us Care for You: No Feels Safe at Home: Yes Safety Concerns: Feels Safe At This Time Assistive Devices: None Physical Exam Psychiatric: Orientation: alert and oriented x 3 Apperance: appropriately dressed and appropriately groomed Eye Contact: good eye contact Motor Behavior: no abnormal motor movements Speech: normal rate/rhythm/volume of speech Affect: + depressed affect Mood: + depressed mood Thought Process: goal directed thought process Thought Content: reality based without delusions Suicidal Thoughts: denies suicidal plan and denies suicidal intent; + reports suicidal thoughts (intermittent passive thoughts ) Homicidal Thoughts: denies homicidal thoughts Hallucinations: no auditory hallucinations and no visual hallucinations Cognition: recent memory grossly intact, remote memory grossly intact, attention grossly intact and language grossly intact Estimated Intelligence: consistent with education level Insight: + limited insight Judgement: + limited judgement Vital Signs (Past 24 Hours): Last Vital Signs Temp 36.7 C 12/01/21 11:47 Pulse 74 12/01/21 14:49 Resp 18 12/01/21 11:47 BP 118/83 12/01/21 11:47 Pulse Ox 95 12/01/21 11:47 Review of Systems All systems reviewed & are unremarkable except as noted in HPI & below Results & Data ([facility]) Laboratory Results nml Na+, nml AST and ALT Medications Administered Amlodipine Besylate (Amlodipine Besylate 5 Mg Tab) 5 mg PO QAM [facility] Stop: 12/31/21 08:59 Last Admin: 12/01/21 08:26 Dose: 5 mg Documented by: [id number] Enoxaparin Sodium (Enoxaparin Inj 40 Mg/0.4 Ml Syr) 40 mg SQ QAM SOHAIL Stop: 12/31/21 08:59 Last Admin: 12/01/21 08:26 Dose: 40 mg Documented by: [id number] Folic Acid (Folic Acid 1 Mg Tab) 1 mg PO QAM S[facility] Stop: 12/30/21 20:59 Last Admin: 12/01/21 08:26 Dose: 1 mg Documented by: [id number] Admin: 11/30/21 21:45 Dose: 1 mg Documented by: [id number] Thiamine HCl 100 mg/ Syringe 10 mls @ 2 mls/min IV QAM SOHAIL Stop: 12/30/21 20:59 Last Admin: 12/01/21 08:37 Dose: 2 mls/min Documented by: [id number] Admin: 11/30/21 21:44 Dose: 2 mls/min Documented by: [id number] Ceftriaxone Sodium 2,000 mg/ (Dextrose) 70 mls @ 100 mls/hr IV Q24H [facility]; Protocol Stop: 12/11/21 08:59 Last Infusion: 12/01/21 09:07 Dose: 0 mls/hr Documented by: [id number] Admin: 12/01/21 08:25 Dose: 100 mls/hr Documented by: [id number] Lisinopril (Lisinopril 10 Mg Tab) 10 mg PO HS [facility] Stop: 12/30/21 20:59 Last Admin: 11/30/21 21:44 Dose: 10 mg Documented by: [id number] Thiamine HCl (Thiamine Hcl 100 Mg Tab) 100 mg PO QAM SOHAIL Stop: 12/30/21 20:59 Last Admin: 12/01/21 08:37 Dose: Not Given Documented by: [id number] Admin: 11/30/21 21:44 Dose: 100 mg Documented by: [id number] Coding Level of Care Code 36583 Inpt Consult Level 3 Diagnoses Alcohol withdrawal F10.239 Alcohol use disorder MDD (major depressive disorder), recurrent episode, mild F33.0
--- NOTE | 2021-12-01 17:15 | Hospitalist Progress Note ---
Date of Service December 01, 2021 Assessment & Plan (1) Depression: (2) Alcohol abuse: (3) Hypertensive urgency: (4) UTI (urinary tract infection): (5) Scrotal hernia: (6) Tobacco use: Plan: UTI - Urine culture from 11/28 showing Ecoli pansensitive, from 11/30 showing GNR - Continue ceftriaxone pending final culture results Depression/ anxiety - seen by [facility]- 1:1 discontinue; recommendations noted - starting zoloft 25 mg daily and increase to 50 mg daily in 5 days if tolerating well - starting naltrexone for alcohol use disorder and repeat LFT in a month Alcohol abuse: denies any alcohol withdrawal complications in the past even when he was abstinent for 2 months. - continue AWSS protocol with prn ativan, thiamine, folate, naltrexone as above, alcohol rehab if patient agreeable Hypertensive urgency: - resolved. BP stable now. Started on norvasc lisinopril, will continue and monitor Right inguinal scrotal hernia: asymptomatic, chronic, worsening for years- currently stable and no indication for emergency intervention unless incarceration or strangulation which will need immediate intervention - seen by surgery- recommended OP follow up once infection cleared Tobacco use: smokes half ppd. declined nicotine patch. Hypokalemia- mild, repleted, recheck in am DVT prophylaxis- sc lovenox Dispo- Pending final culture results, on AWSS protocol for alcohol abuse/withdrawal Admission and Anticipated Discharge Date Admission Date: November 30, 2021 Subjective No new issues. Feels fine. Denies any fever, chills, pain, nausea, vomiting. Physical Exam Physical Exam: General: Sitting comfortably in bed, not in distress, on room air HEENT: EOMI, ADARSH, MMM Chest: Clear breath sounds bilaterally, no wheezes or crackles CVS: Regular rate and rhythm, normal heart sounds, no murmur Abdomen: Soft, non tender, not distended, normal bowel sounds Neuro: Awake, alert, oriented, conversing well, non focal Extremities: No cyanosis, clubbing or edema Psych: calm, cooperative, low mood, 1:1 at bedside Genitourinary exam not done Results & Data Results & Data ([facility]) Vital Signs (Past 12 Hours) Vital Signs Temp Pulse Pulse Resp BP Pulse Ox 12/01/21 16:00 36.7 C 72 18 138/88 94 12/01/21 14:49 74 12/01/21 11:47 36.7 C 80 18 118/83 95 12/01/21 08:00 64 12/01/21 07:36 36.5 C 69 18 113/70 94 Laboratory Results Short CBC 12/01/21 Range/Units 06:51 WBC 6.13 (4.8-10.8) K/uL Hgb 15.6 (14.0-18.0) g/dL Hct 46.0 (42-52) % Plt Count 107 L (130-400) K/uL BMP 12/01/21 06:51 Sodium 140 Potassium 3.4 L Chloride 105 Carbon Dioxide 27 BUN 22 Creatinine 1.23 D Glucose 99 Calcium 9.2 Medications Administered Current Inpatient Medications Acetaminophen (Acetaminophen 325 Mg Tab) 650 mg PO Q4H PRN PRN Reason: Pain or Fever Stop: 12/30/21 20:45 Amlodipine Besylate (Amlodipine Besylate 5 Mg Tab) 5 mg PO [facility] Stop: 12/31/21 08:59 Last Admin: 12/01/21 08:26 Dose: 5 mg Documented by: Enoxaparin Sodium (Enoxaparin Inj 40 Mg/0.4 Ml Syr) 40 mg SQ [facility] Stop: 12/31/21 08:59 Last Admin: 12/01/21 08:26 Dose: 40 mg Documented by: Folic Acid (Folic Acid 1 Mg Tab) [facility] Stop: 12/30/21 20:59 Last Admin: 12/01/21 08:26 Dose: 1 mg Documented by: Thiamine HCl 100 mg/ Syringe 10 mls @ 2 mls/[facility] [place] Stop: 12/30/21 20:59 Last Admin: 12/01/21 08:37 Dose: 2 mls/min Documented by: Ceftriaxone Sodium 2,000 mg/ (Dextrose) 70 mls @ 100 mls/hr IV Q24H [facility]; Protocol Stop: 12/11/21 08:59 Last Infusion: 12/01/21 09:07 Dose: Infused Documented by: Lisinopril (Lisinopril 10 Mg Tab) 10 mg PO [facility] Stop: 12/30/21 20:59 Last Admin: 11/30/21 21:44 Dose: 10 mg Documented by: Lorazepam (Lorazepam 1 Mg Tab) 1 mg PO ONE PRN; Protocol PRN Reason: EtoH Withdrawal AWSS 6-10 Lorazepam (Lorazepam 1 Mg Tab) 1 - 3 mg PO UD PRN; Protocol PRN Reason: EtoH Withdrawal AWSS 6-10+ Stop: 12/30/21 20:45 Lorazepam (Lorazepam 2 Mg/1 Ml Vial) 1 mg IV UD PRN; Protocol PRN Reason: EtOH Withdrawl AWSS Score 6,7 Stop: 12/30/21 20:45 Lorazepam (Lorazepam 2 Mg/1 Ml Vial) 2 mg IV UD PRN; Protocol PRN Reason: EtOH Withdrawl AWSS Score 8,9 Stop: 12/30/21 20:45 Lorazepam (Lorazepam 2 Mg/1 Ml Vial) 3 mg IV ONCE PRN; Protocol PRN Reason: EtOH Withdrawl AWSS Score >=10 Stop: 12/30/21 20:45 Naltrexone HCl (Naltrexone Hcl 50 Mg Tab) 50 mg PO DAILY [facility] Stop: 01/01/22 08:59 Sertraline HCl (Sertraline Hcl 50 Mg Tablet) 25 mg PO QAM [facility] Stop: 01/01/22 08:59 Thiamine HCl (Thiamine Hcl 100 Mg Tab) 100 mg PO QAM [facility] Stop: 12/30/21 20:59 Last Admin: 12/01/21 08:37 Dose: Not Given Documented by: (1) Depression Depression Type: unspecified Qualified Code(s): F32.A - Depression, unspecified
[2021-12-01] MEDS: lisinopril 10 MG TAB PO SCH (20:18)
[2021-12-02 05:53] LABS: Hematocrit (blood only) 44.6 % (42-52); Hemoglobin 15.2 g/dL (14.0-18.0); Mean Corpuscular Hemoglobin 35.6 pg (25-34); Mean Corpuscular Hgb Conc 34.1 g/dL (32-36); Mean Corpuscular Volume 104.4 fL (80-100); RDW Standard Deviation 53.1 fL (36.4-46.3); Red Blood Count 4.27 M/uL (4.7-6.1); White Blood Count 6.88 K/uL (4.8-10.8)
[2021-12-02 06:14] LABS: BUN Creatinine Ratio 21.7 (10-20); Calcium 8.6 mg/dl (8.5-10.1); Creatinine Clr Calc Pharmacy 76.8 ml/min; Est GFR (African American) 72.1 ml/min; Est GFR (Non-African American) 62.2 ml/min; Magnesium 1.7 mg/dl (1.7-2.4); Phosphorus 3.6 mg/dl (2.5-4.9); Potassium 3.5 mmol/L (3.5-5.1)
[2021-12-02 06:28] LABS: Mean Platelet Volume 9.8 fL (7.4-10.4); Platelet Count 90 K/uL (130-400); Platelet Estimate Decreased (Normal)
[2021-12-02] MEDS: ENOXAPARIN INJ 40 MG/0.4 ML SYR SQ SCH (08:32)
[2021-12-02] MEDS: THIAMINE HCL 100 MG TAB PO SCH (08:32)
[2021-12-02] MEDS: amLODIPine BESYLATE 5 MG TAB PO SCH (08:32)
[2021-12-02] MEDS: FOLIC ACID 1 MG TAB PO SCH (08:32)
[2021-12-02] MEDS: cefTRIAXone SODIUM 2,000 MG in DEXTROSE 5% 50 ML IV SCH (09:13)
--- NOTE | 2021-12-02 09:41 | Ultrasound Report ---
LEFT LOWER EXTREMITY VENOUS DOPPLER HISTORY: Acute pain and swelling of the left lower leg r/o ruptured lopez's cyst, DVT COMPARISON STUDY: None. FINDINGS: There is normal compressibility, flow, and augmentation within the left lower extremity chicho p venous system. Limited visualization of the calf veins secondary to patient body habitus. IMPRESSION: No DVT within the left lower extremity. ACT 112: Negative or not required by law. Electronically signed by: Fernando Jansen M.D. 12/02/2021 9:40 AM
[2021-12-02] MEDS: LIDOCAINE 5% 1 PATCH TD SCH (09:50)
[2021-12-02] MEDS: SERTRALINE HCL 50 MG TABLET PO SCH (09:57)
[2021-12-02] MEDS: NALTREXONE HCL 50 MG TAB PO SCH (09:58)
[2021-12-02] MEDS: DICLOFENAC SOD 1% GEL 100 GM TUBE EXT SCH ×3 (12:15→19:48)
[2021-12-02] MEDS: CYANOCOBALAMIN 1000 MCG/ML VIAL IM SCH (12:17)
--- NOTE | 2021-12-02 12:54 | XRay Report ---
XR knee LT 4V CLINICAL HISTORY: left knee pain TECHNIQUE: 4 views of the left knee were obtained. Comparison: None available at the time of this dictation. FINDINGS: There is no evidence of an acute fracture. Joint spaces are well-preserved. A moderate suprapatellar effusion is seen. No soft tissue abnormality is seen. IMPRESSION: Suprapatellar effusion without evidence of underlying bony abnormality. ACT 112: Negative or not required by law. Electronically signed by: Mayo Ayoub M.D. 12/02/2021 12:53 PM
--- NOTE | 2021-12-02 13:29 | Psychiatric Progress Note ---
Date of Service December 02, 2021 Impression / Recommendations Impression This is a 66 yo with a history of alcohol use admitted medically. Diagnostically consistent with alcohol use disorder as well as unspecified depression likely a combination of substance-induced as well as MDD, mild. At this point risk of harm is low given denial of SI with most significant modifiable risk factor for reducing acute and chronic risk is substance use treatment. He is currently contemplative about potentially cutting down on some of his alcohol intake but would like to continue drinking from time to time. They do not meet criteria for inpatient psychiatric treatment at this time rather recommendation is for residential substance use treatment. They are not interested in residential treatment at this time but he is going to consider outpatient services at [facility] to help with substance use and is agreeable to medication assisted treatment. Liver enzymes reviewed and stable for treatment with naltrexone and no concurrent opioids. He also would like to start and consented to sertraline for depression. Reviewed side effects including but not limited to: GI, HOWARD, sexual side effects. 12/02/21: Remains contemplative about substance use treatment and therapy for substance use/depression but has resources and starting to look at them. Tolerating medications so far. Reviewed importance of following up with his PCP after discharge and that his LFTs should be checked again in 1 month. Acute risk remains low given denial of SI and some improvement in mood. -Has resources on local mental health services and substance use services, considering referral will let us know if he's interested in this -Patient is not an imminent danger to self or others and does not meet criteria for psychiatric hospitalization, psychiatrically safe for discharge once medically stable -Continue AWSS as well as thiamine and folic acid - naltrexone 50mg qd for alcohol use disorder, should have LFTs repeated in 1 month -sertraline 25mg qd, increase to 50mg in 5-7 days if he is tolerating this well (1) MDD (major depressive disorder), recurrent episode, mild: (2) Alcohol use disorder: (3) Alcohol withdrawal: see above Risk Factors Assessment Male: Yes : Yes Do You Have Access To A Gun?: No (recently gave them to his brother ) Mental Health Diagnoses: Yes Substance Use Disorders: Yes Previous Attempt: No Family History of Suicide: No Previous Psychiatric Hospitalization: No Hopelessness: No Protective Factors Assessment Employed: Yes (On leave from work d/t MH issues) Supportive Family: Yes Interval History Identifying Information Dionisio Lopez is a 66 yo man admitted medically for alcohol withdrawal and depression. Psychiatry was consulted for risk assessment and recommendations. Chief Complaint "I'm good, just dealing with left knee pain, that's my biggest concern". Review of Systems Notes see subjective Subjective Subjective Patient was seen & assessed and interval progress reviewed. He reports stable sleep and appetite. Having some left knee pain, had an ultrasound he reports to rule out any blood clot. Has been thinking about [facility] for outpatient therapy-looked at the website, not sure yet if he wants a referral but agreed to let us know if he desires this. Reviewed that he can also self-refer if he decides to do this later. No side effects from sertraline or naltrexone so far. Denies SI. Physical Exam Psychiatric Orientation: alert and oriented x 3 Apperance: appropriately dressed and appropriately groomed Eye Contact: good eye contact Motor Behavior: no abnormal motor movements Speech: normal rate/rhythm/volume of speech Affect: euthymic affect Mood: + depressed mood Thought Process: goal directed thought process Thought Content: reality based without delusions Suicidal Thoughts: denies suicidal plan and denies suicidal intent; + reports suicidal thoughts (intermittent passive thoughts ) Homicidal Thoughts: denies homicidal thoughts Hallucinations: no auditory hallucinations and no visual hallucinations Cognition: recent memory grossly intact, remote memory grossly intact, attention grossly intact and language grossly intact Estimated Intelligence: consistent with education level Insight: + limited insight Judgement: + limited judgement Vital Signs (Past 24 Hours) Last Vital Signs Temp 36.5 C 12/02/21 11:45 Pulse 71 12/02/21 11:45 Resp 20 12/02/21 11:45 BP 143/81 H 12/02/21 11:45 Pulse Ox 95 12/02/21 11:45 Results & Data ([facility]) Laboratory Results Laboratory Results - last 24 hr 12/01/21 12/02/21 12/02/21 06:51 05:37 05:37 WBC 6.88 RBC 4.27 L Hgb 15.2 Hct 44.6 MCV 104.4 H MCH 35.6 H MCHC 34.1 RDW Std Deviation 53.1 H RDW Coeff of Tiffanie 14.0 Plt Count 90 L MPV 9.8 Platelet Estimate Decreased L Sodium 138 Potassium 3.5 Chloride 105 Carbon Dioxide 26 Anion Gap 7 BUN 26 H Creatinine 1.20 Est Cr Clr Drug Dosing 76.8 Est GFR ( Amer) 72.1 Est GFR (Non-Af Amer) 62.2 BUN/Creatinine Ratio 21.7 H Glucose 98 Calcium 8.6 Phosphorus 3.6 Magnesium 1.7 Vitamin B12 Hepatitis C Ab (EIA) NON-REACTIVE Hep C Ab Signal/Cutoff 0.01 12/02/21 05:37 WBC RBC Hgb Hct MCV MCH MCHC RDW Std Deviation RDW Coeff of Tiffanie Plt Count MPV Platelet Estimate Sodium Potassium Chloride Carbon Dioxide Anion Gap BUN Creatinine Est Cr Clr Drug Dosing Est GFR ( Amer) Est GFR (Non-Af Amer) BUN/Creatinine Ratio Glucose Calcium Phosphorus Magnesium Vitamin B12 152 L Hepatitis C Ab (EIA) Hep C Ab Signal/Cutoff Current Inpatient Medications Current Inpatient Medications: Current Inpatient Medications Acetaminophen (Acetaminophen 325 Mg Tab) 650 mg PO Q4H PRN PRN Reason: Pain or Fever Stop: 12/30/21 20:45 Last Admin: 12/02/21 09:14 Dose: 650 mg Documented by: Amlodipine Besylate (Amlodipine Besylate 5 Mg Tab) 5 mg PO [facility] Stop: 12/31/21 08:59 Last Admin: 12/02/21 08:32 Dose: 5 mg Documented by: Cyanocobalamin (Cyanocobalamin 1000 Mcg/Ml Vial) 1,000 mcg IM [facility] Stop: 12/06/21 11:29 Last Admin: 12/02/21 12:17 Dose: 1,000 mcg Documented by: Diclofenac Sodium (Diclofenac Sod 1% Gel 100 Gm Tube) 2 gm EXT QID [facility] Stop: 01/01/22 12:59 Last Admin: 12/02/21 12:15 Dose: 2 gm Documented by: Enoxaparin Sodium (Enoxaparin Inj 40 Mg/0.4 Ml Syr) 40 mg SQ [facility] Stop: 12/31/21 08:59 Last Admin: 12/02/21 08:32 Dose: 40 mg Documented by: Folic Acid (Folic Acid 1 Mg Tab) 1 mg PO [facility] Stop: 12/30/21 20:59 Last Admin: 12/02/21 08:32 Dose: 1 mg Documented by: Ceftriaxone Sodium 2,000 mg/ (Dextrose) 70 mls @ 100 mls/hr IV Q24H [facility]; Protocol Stop: 12/11/21 08:59 Last Infusion: 12/02/21 09:55 Dose: Infused Documented by: Lidocaine (Lidocaine 5% 1 Patch) 1 patch TD QAM [facility] Stop: 01/01/22 08:59 Last Admin: 12/02/21 09:50 Dose: 1 patch Documented by: Lisinopril (Lisinopril 10 Mg Tab) 10 mg PO HS [facility] Stop: 12/30/21 20:59 Last Admin: 12/01/21 20:18 Dose: 10 mg Documented by: Lorazepam (Lorazepam 1 Mg Tab) 1 mg PO ONE PRN; Protocol PRN Reason: EtoH Withdrawal AWSS 6-10 Lorazepam (Lorazepam 1 Mg Tab) 1 - 3 mg PO UD PRN; Protocol PRN Reason: EtoH Withdrawal AWSS 6-10+ Stop: 12/30/21 20:45 Lorazepam (Lorazepam 2 Mg/1 Ml Vial) 1 mg IV UD PRN; Protocol PRN Reason: EtOH Withdrawl AWSS Score 6,7 Stop: 12/30/21 20:45 Lorazepam (Lorazepam 2 Mg/1 Ml Vial) 2 mg IV UD PRN; Protocol PRN Reason: EtOH Withdrawl AWSS Score 8,9 Stop: 12/30/21 20:45 Lorazepam (Lorazepam 2 Mg/1 Ml Vial) 3 mg IV ONCE PRN; Protocol PRN Reason: EtOH Withdrawl AWSS Score >=10 Stop: 12/30/21 20:45 Miscellaneous (Remove Lidoderm Patch) 1 ea N/A DAILY@2100 [facility] Stop: 01/01/22 20:59 Naltrexone HCl (Naltrexone Hcl 50 Mg Tab) 50 mg PO DAILY [facility] Stop: 01/01/22 08:59 Last Admin: 12/02/21 09:58 Dose: 50 mg Documented by: Sertraline HCl (S[facility]raline Hcl 50 Mg Tablet) [facility] [place] Stop: 01/01/22 08:59 Last Admin: 12/02/21 09:57 Dose: 25 mg Documented by: Thiamine HCl (Thiamine Hcl 100 Mg Tab) 100 mg PO QAM [facility] Stop: 12/30/21 20:59 Last Admin: 12/02/21 08:32 Dose: 100 mg Documented by: Mental Health & Subst Abuse Tx Therapist Name of Therapist: Doesn't remember name; D&A Counselor - court mandated Table Operator Name of Table Operator: None Post Discharge Appointments Primary Care Physician Name Of Family Doctor: Cruz Quintanilla
--- NOTE | 2021-12-02 13:40 | Electrocardiogram Report ---
Test Reason : Blood Pressure : / mmHG Vent. Rate : 105 BPM Atrial Rate : 105 BPM P-R Int : 120 ms QRS Dur : 082 ms QT Int : 190 ms P-R-T Axes : 028 -13 243 degrees QTc Int : 251 ms Poor data quality, interpretation may be adversely affected Sinus tachycardia with occasional Premature ventricular complexes Possible Left atrial enlargement Nonspecific ST and T wave abnormality Abnormal ECG When compared with ECG of 20-OCT-2018 07:32, Premature ventricular complexes are now Present ST now depressed in Anterior leads QT has shortened Confirmed by Elfego Mosquera ([id number]) on 12/02/2021 1:39:44 PM Referred By: REFERRED SELF Confirmed By:Elfego Mosquera
--- NOTE | 2021-12-02 13:56 | Hospitalist Progress Note ---
Date of Service December 02, 2021 Assessment & Plan (1) Depression: (2) Alcohol abuse: (3) Hypertensive urgency: (4) UTI (urinary tract infection): (5) Scrotal hernia: (6) Tobacco use: Plan: Acute left knee pain- started this morning, no trauma, no cellulitis. - ROM limited and unable to straighten knee due to pain - US LE without DVT - Xray left knee unremarkable except for moderate suprapatellar effusion - continue lidocaine patch, volatern gel, tylenol - Consulted ortho E coli UTI - Urine culture from 11/28 and 11/30 with Ecoli pansensitive - Continue ceftriaxone D3. Will change to vantin at discharge. Depression/ anxiety - seen by [facility]- 1:1 discontinued; recommendations noted - started on zoloft 25 mg daily on 12/01 and increase to 50 mg daily in 5 days if tolerating well - started on naltrexone 12/01 for alcohol use disorder and repeat LFT in a month Alcohol abuse: denies any alcohol withdrawal complications in the past even when he was abstinent for 2 months. - continue AWSS protocol with prn ativan, thiamine, folate, naltrexone as above, contemplating of inpatient alcohol rehab- informed CM to see Hypertensive urgency:- resolved. BP stable now. Started on norvasc lisinopril, will continue and monitor Right inguinal scrotal hernia: asymptomatic, chronic, worsening for years- currently stable and no indication for emergency intervention unless incarceration or strangulation which will need immediate intervention - seen by surgery- recommended OP follow up once infection cleared Tobacco use: smokes half ppd. declined nicotine patch. Hypokalemia- resolved Vit B 12 def- B12 level 152. Started on im b12- change to po at discharge. DVT prophylaxis- sc lovenox Dispo- Ortho eval pending; possibly alcohol rehab at discharge if patient agreeable Admission and Anticipated Discharge Date Admission Date: November 30, 2021 Subjective Complains of left knee pain and stiffness since this morning, no trauma. No f ever or chills. No prior episodes. Unable to straighten the knee. Otherwise no other issues. Contemplating of going to inpatient alcohol rehab during my conversation. Physical Exam Physical Exam: General: Lying in bed, not in acute distress, on room air HEENT: EOMI, ADARSH, MMM Chest: Clear breath sounds bilaterally, no wheezes or crackles CVS: Regular rate and rhythm, normal heart sounds, no murmur Abdomen: Soft, non tender, not distended, normal bowel sounds Neuro: Awake, alert, oriented, conversing well, non focal Extremities: Left knee tenderness more on back of knee, ROM limited and unable to straighten left knee due to pain Psych: calm, cooperative, low mood, 1:1 at bedside Genitourinary exam not done Results & Data Results & Data ([facility]) Vital Signs (Past 12 Hours) Vital Signs Temp Pulse Pulse Resp BP Pulse Ox 12/02/21 11:45 36.5 C 71 20 143/81 H 95 12/02/21 08:00 77 12/02/21 07:50 36.4 C L 70 20 127/83 96 12/02/21 03:42 36.8 C 77 17 130/88 95 Laboratory Results Short CBC 12/02/21 Range/Units 05:37 WBC 6.88 (4.8-10.8) K/uL Hgb 15.2 (14.0-18.0) g/dL Hct 44.6 (42-52) % Plt Count 90 L (130-400) K/uL BMP 12/02/21 05:37 Sodium 138 Potassium 3.5 Chloride 105 Carbon Dioxide 26 BUN 26 H Creatinine 1.20 Glucose 98 Calcium 8.6 Diagnostic Findings Venous Doppler Study 12/02/21 08:20 LEFT LOWER EXTREMITY VENOUS DOPPLER HISTORY: Acute pain and swelling of the left lower leg r/o ruptured lopez's cyst, DVT COMPARISON STUDY: None. FINDINGS: There is normal compressibility, flow, and augmentation within the left lower extremity deep venous system. Limited visualization of the calf veins secondary to patient body habitus. IMPRESSION: No DVT within the left lower extremity. ACT 112: Negative or not required by law. Electronically signed by: Fernando Jansen M.D. 12/02/2021 9:40 AM Knee X-Ray 12/02/21 11:28 XR knee LT 4V CLINICAL HISTORY: left knee pain TECHNIQUE: 4 views of the left knee were obtained. Comparison: None available at the time of this dictation. FINDINGS: There is no evidence of an acute fracture. Joint spaces are well-preserved. A moderate suprapatellar effusion is seen. No soft tissue abnormality is seen. IMPRESSION: Suprapatellar effusion without evidence of underlying bony abnormality. ACT 112: Negative or not required by law. Electronically signed by: Mayo Ayoub M.D. 12/02/2021 12:53 PM Medications Administered Current Inpatient Medications Acetaminophen (Acetaminophen 325 Mg Tab) 650 mg PO Q4H PRN PRN Reason: Pain or Fever Stop: 12/30/21 20:45 Last Admin: 12/02/21 09:14 Dose: 650 mg Documented by: Amlodipine Besylate (Amlodipine Besylate 5 Mg Tab) [facility] Stop: 12/31/21 08:59 Last Admin: 12/02/21 08:32 Dose: 5 mg Documented by: Cyanocobalamin (Cyanocobalamin 1000 Mcg/Ml Vial) 1,000 mcg IM [facility] Stop: 12/06/21 11:29 Last Admin: 12/02/21 12:17 Dose: 1,000 mcg Documented by: Diclofenac Sodium (Diclofenac Sod 1% Gel 100 Gm Tube) 2 gm EXT QID [facility] Stop: 01/01/22 12:59 Last Admin: 12/02/21 12:15 Dose: 2 gm Documented by: Enoxaparin Sodium (Enoxaparin Inj 40 Mg/0.4 Ml Syr) 40 [facility]Q [facility] Stop: 12/31/21 08:59 Last Admin: 12/02/21 08:32 Dose: 40 mg Documented by: Folic Acid (Folic Acid 1 Mg Tab) 1 mg PO QAM [facility] Stop: 12/30/21 20:59 Last Admin: 12/02/21 08:32 Dose: 1 mg Documented by: Ceftriaxone Sodium 2,000 mg/ (Dextrose) 70 mls @ 100 mls/hr IV Q24H [facility]; Protocol Stop: 12/11/21 08:59 Last Infusion: 12/02/21 09:55 Dose: Infused Documented by: Lidocaine (Lidocaine 5% 1 Patch) 1 patch TD [facility] Stop: 01/01/22 08:59 Last Admin: 12/02/21 09:50 Dose: 1 patch Documented by: Lisinopril (Lisinopril 10 Mg Tab) 10 mg PO [facility] Stop: 12/30/21 20:59 Last Admin: 12/01/21 20:18 Dose: 10 mg Documented by: Lorazepam (Lorazepam 1 Mg Tab) 1 mg PO ONE PRN; Protocol PRN Reason: EtoH Withdrawal AWSS 6-10 Lorazepam (Lorazepam 1 Mg Tab) 1 - 3 mg PO UD PRN; Protocol PRN Reason: EtoH Withdrawal AWSS 6-10+ Stop: 12/30/21 20:45 Lorazepam (Lorazepam 2 Mg/1 Ml Vial) 1 mg IV UD PRN; Protocol PRN Reason: EtOH Withdrawl AWSS Score 6,7 Stop: 12/30/21 20:45 Lorazepam (Lorazepam 2 Mg/1 Ml Vial) 2 mg IV UD PRN; Protocol PRN Reason: EtOH Withdrawl AWSS Score 8,9 Stop: 12/30/21 20:45 Lorazepam (Lorazepam 2 Mg/1 Ml Vial) 3 mg IV ONCE PRN; Protocol PRN Reason: EtOH Withdrawl AWSS Score >=10 Stop: 12/30/21 20:45 Miscellaneous (Remove Lidoderm Patch) 1 ea N/A DAILY@2100 [facility] Stop: 01/01/22 20:59 Naltrexone HCl (Naltrexone Hcl 50 Mg Tab) 50 mg PO DAILY [facility] Stop: 01/01/22 08:59 Last Admin: 12/02/21 09:58 Dose: 50 mg Documented by: Sertraline HCl (Sertraline Hcl 50 Mg Tablet) [facility] Stop: 01/01/22 08:59 Last Admin: 12/02/21 09:57 Dose: 25 mg Documented by: Thiamine HCl (Thiamine Hcl 100 Mg Tab) 100 mg PO QAM [facility] Stop: 12/30/21 20:59 Last Admin: 12/02/21 08:32 Dose: 100 mg Documented by: (1) Depression Depression Type: unspecified Qualified Code(s): F32.A - Depression, unspecified
[2021-12-02] MEDS ORDERED: LIDOCAINE 1% LOCAL 20 ML VIAL ONE (15:34)
--- NOTE | 2021-12-02 16:19 | Orthopedic Consultation ---
Date of Consultation December 02, 2021 Assessment & Plan (1) Knee pain, left: Left knee effusion secondary to acute arthritic flare vs gout -Aspirated knee at bedside, aspirated approx 50cc clear, yellow healthy appearing synovial fluid -Sent for testing including cell count w/ diff, culture anerobic and aerobic with sensitivites, crystals, lyme and gram stain. Will follow up on results -Pt reported improvement in pain post aspiration -Recommend PT/OT, ice, elevation and high dose anti-inflammatory or prednisone if medically able -Pt may follow up with [facility] outpatient. We will continue to follow results of labs. -Case discussed and agreed upon with attending Procedure: Risks and benefits were explained and verbal consent obtained. Left knee confirmed for procedure. Aspiration site was marked at suprapatellar area. SKin cleansed with Betadine swab and alcohol. Using 22 gauge needle, 5mL 1% lidocaine without was used to anesthetize aspiration site. Betadine swab and alcohol was used again to cleanse the skin. Then, 35 cc syrninge with 18 gauge needle used to aspirated 35cc clear yellow fluid. That syringe was capped and another 60cc syringe used to draw out another 15 cc yellow, slightly blood tinged fluid. Pt tolerated the procedure well. Noted immediate pain relief. Band aid was applied. Bleeding controlled. Synovial fluid was makred and labeled and sent for the above mentioned testing. I, Dr. Collazo, saw and examined the patient and discussed the management with my PA. I reviewed my PAs note and agree with the documented findings and the plan of care I developed. I, Dr. Collazo, spent 30 minutes reviewing the chart, reading the imaging, evaluating the patient, discussing care plan with the patient and PA. My PA spent 45 minutes reviewing the chart, evaluating the patient and documentation. History of Present Illness Reason for Consultation: left knee swelling Requesting Physician: Finesse Collazo MD Attending Physician: Juan Bales MD History of Present Illness Pt is a 66 year old male admitted for UTI who woke up this morning with left knee pain and swelling. He rates pain 2/10 when he is resting and 6/10 when he tried to bend it. He has no had knee issues in the past or history of gout. He does drink alcohol and is on diuretic. He denies fevers or chills. He denies any injury. Allergies Allergy/AdvReac Type Severity Reaction Status Date / Time No Known Allergies Allergy Verified 11/28/21 22:49 Home Medications Medication Instructions Recorded Confirmed Type No Known Home Medications 11/28/21 11/28/21 History Patient History Social History Smoking Status: Current every day smoker Tobacco Type: Cigarettes Cigarettes Per Day: 20; Hx Alcohol Use: Yes Alcohol type: wine and hard liquor Hx Substance Use: No Preferred Language: Greek Communication Ability: Effective Health Educator Required: No Beliefs That Will Affect Care: None marital status: Single Current Living Situation: Alone Other Information That Helps Us Care for You: No Feels Safe at Home: Yes Safety Concerns: Feels Safe At This Time Assistive Devices: None Physical Exam Physical Exam: Left Knee: Moderate knee effusion noted. No redness or warmth appreciated. Patient tender to palpate suprapatellar pouch. Range of motion 0-45 due to pain. DF/PF 5/5. NVI. Calf supple and non tender Results & Data ([facility]) Vital Signs (Past 12 Hours) Vital Signs Temp Pulse Pulse Resp BP Pulse Ox 12/02/21 15:51 36.6 C 77 18 171/104 H 97 12/02/21 11:45 36.5 C 71 20 143/81 H 95 12/02/21 08:00 77 12/02/21 07:50 36.4 C L 70 20 127/83 96 Diagnostic Findings Venous Doppler Study 12/02/21 08:20 LEFT LOWER EXTREMITY VENOUS DOPPLER HISTORY: Acute pain and swelling of the left lower leg r/o ruptured lopez's cyst, DVT COMPARISON STUDY: None. FINDINGS: There is normal compressibility, flow, and augmentation within the left lower extremity deep venous system. Limited visualization of the calf veins secondary to patient body habitus. IMPRESSION: No DVT within the left lower extremity. ACT 112: Negative or not required by law. Electronically signed by: Fernando Jansen M.D. 12/02/2021 9:40 AM Knee X-Ray 12/02/21 11:28 XR knee LT 4V CLINICAL HISTORY: left knee pain TECHNIQUE: 4 views of the left knee were obtained. Comparison: None available at the time of this dictation. FINDINGS: There is no evidence of an acute fracture. Joint spaces are well-preserved. A moderate suprapatellar effusion is seen. No soft tissue abnormality is seen. IMPRESSION: Suprapatellar effusion without evidence of underlying bony abnormality. ACT 112: Negative or not required by law. Electronically signed by: Mayo Ayoub M.D. 12/02/2021 12:53 PM
[2021-12-02 18:19] LABS: Appearance Synovial Fluid CLOUDY; Color Synovial Fluid YELLOW; Mononuclear WBC Synovial 13.8 %; Polynuclear WBC Synovial 86.2 %; RBC Synovial Fluid (A) < 3000 /uL; Source Synovial Fluid KNEE; WBC Synovial Fluid (A) 7533 /ul (0-200)
[2021-12-02] MEDS: lisinopril 10 MG TAB PO SCH (19:48)
[2021-12-03 06:20] LABS: Creatinine Clr Calc Pharmacy 94.9 ml/min; Est GFR (African American) 93.2 ml/min; Est GFR (Non-African American) 80.5 ml/min
[2021-12-03] MEDS: SERTRALINE HCL 50 MG TABLET PO SCH (08:13)
[2021-12-03] MEDS: amLODIPine BESYLATE 5 MG TAB PO SCH (08:13)
[2021-12-03] MEDS: NALTREXONE HCL 50 MG TAB PO SCH (08:13)
[2021-12-03] MEDS: CYANOCOBALAMIN 1000 MCG/ML VIAL IM SCH (08:13)
[2021-12-03] MEDS: THIAMINE HCL 100 MG TAB PO SCH (08:13)
[2021-12-03] MEDS: cefTRIAXone SODIUM 2,000 MG in DEXTROSE 5% 50 ML IV SCH (08:13)
[2021-12-03] MEDS: FOLIC ACID 1 MG TAB PO SCH (08:13)
[2021-12-03] MEDS: ENOXAPARIN INJ 40 MG/0.4 ML SYR SQ SCH (08:15)
[2021-12-03] MEDS: LIDOCAINE 5% 1 PATCH TD SCH (08:16)
[2021-12-03] MEDS: DICLOFENAC SOD 1% GEL 100 GM TUBE EXT SCH ×4 (08:16→19:48)
[2021-12-03] MEDS: predniSONE 20 MG TAB PO SCH (09:51)
--- NOTE | 2021-12-03 10:09 | Orthopedic Progress Note ---
Date of Service December 03, 2021 Assessment & Plan (1) Knee pain, left: Plan: Right knee pain and effusion due to Gout. Patient can be weightbearing as tolerated on left lower extremity. I applied an Fabrice wrap over the knee to help prevent further accumulation of fluid. Ice with easy wrap Advised the patient if the fluid continues to reaccumulate another Aspiration may be needed. Patient states the medicine is planning on giving him an oral steroid because they feel that his issues with his a gouty arthritis Orthopedically I feel that the patient is stable at this time. I Dr. Collazo, saw and examined the patient and agree with the above findings and plan of care which I developed and discussed with my PA. Continue care per primary service. Patient should follow-up with PCP as an out patient for management of Gout. Please recall for any Ortho issues. Admission and Anticipated Discharge Date Admission Date: November 30, 2021 Subjective This 66-year-old male seen this morning after having a knee aspiration formed by Amanda Ospina PA-C yesterday.Patient states his knee swelling has Slightly recurred. He complains of some stiffness in the knee this morning. He denies any drainage from the aspiration site. Denies fever, chills, sweats, numbness or tingling or lethargy. He also denies chest pain shortness of breath, nausea vomiting or diarrhea. Review of Systems Review of Systems: All systems reviewed & are unremarkable except as noted in Subjective Physical Exam Physical Exam: Left knee; patient has a 1+ effusion. There is no erythema, ecchymosis, warmth or palpable deformity. Range of motion is from 6 degrees of extension to about 94 degrees of flexion. He is able to perform an active straight leg raise test. He is able to actively dorsi and plantarflex foot without difficulty. Peripheral pulses 2+. Cap refills less than 2 seconds. Quad strength is 3+/5. Patient is neurovascularly intact in the left lower extremity. Results & Data ([facility]) Vital Signs (Past 12 Hours) Vital Signs Temp Pulse Pulse Resp BP Pulse Ox 12/03/21 07:39 36.8 C 79 19 157/103 H 94 12/03/21 06:14 74 12/03/21 03:11 36.6 C 72 18 158/100 H 94 12/02/21 23:25 36.9 C 77 18 154/96 H 94 12/02/21 23:15 87 Diagnostic Findings Laboratory Results Review of a synovial fluid specimen for crystals shows strongly birefringent needle shaped crystals present. The crystals are consistent with uric acid crystals of gout. Wayne Bowman M.D. WBC 6.88 K/uL (4.8-10.8) 12/02/21 05:37 RBC 4.27 M/uL (4.7-6.1) L 12/02/21 05:37 Hgb 15.2 g/dL (14.0-18.0) 12/02/21 05:37 Hct 44.6 % (42-52) 12/02/21 05:37 MCV 104.4 fL (80-100) H 12/02/21 05:37 MCH 35.6 pg (25-34) H 12/02/21 05:37 MCHC 34.1 g/dL (32-36) 12/02/21 05:37 RDW Std Deviation 53.1 fL (36.4-46.3) H 12/02/21 05:37 RDW Coeff of [place] 14.0 % (11.5-14.5) 12/02/21 05:37 Plt Count 90 K/uL (130-400) L 12/02/21 05:37 MPV 9.8 fL (7.4-10.4) 12/02/21 05:37 Immature Gran % (Auto) 0.2 % 11/30/21 11:37 Neut % (Auto) 80.3 % 11/30/21 11:37 Lymph % (Auto) 11.2 % 11/30/21 11:37 [place] % (Auto) 7.8 % 11/30/21 11:37 Eos % (Auto) 0.3 % 11/30/21 11:37 Baso % (Auto) 0.2 % 11/30/21 11:37 Neut # (Auto) 5.18 K/uL (1.4-6.5) 11/30/21 11:37 Lymph # (Auto) 0.72 K/uL (1.2-3.4) L 11/30/21 11:37 [place] # (Auto) 0.50 K/uL (0.11-0.59) 11/30/21 11:37 Eos # (Auto) 0.02 K/uL (0-0.5) 11/30/21 11:37 Baso # (Auto) 0.01 K/uL (0-0.2) 11/30/21 11:37 Immature Gran # (Auto) 0.01 K/uL (0.00-0.02) 11/30/21 11:37 Platelet Estimate Decreased (Normal) L 12/02/21 05:37 Sodium 138 mmol/L (136-145) 12/02/21 05:37 Potassium 3.5 mmol/L (3.5-5.1) 12/02/21 05:37 Chloride 105 mmol/L (98-107) 12/02/21 05:37 Carbon Dioxide 26 mmol/L (21-32) 12/02/21 05:37 Anion Gap 7 (3-11) 12/02/21 05:37 BUN 26 mg/dl (6-23) H 12/02/21 05:37 Creatinine 0.97 mg/dl (0.6-1.4) 12/03/21 05:27 Est Cr Clr Drug Dosing 94.9 ml/min 12/03/21 05:27 Est GFR ( Amer) 93.2 ml/min 12/03/21 05:27 Est GFR (Non-Af Amer) 80.5 ml/min 12/03/21 05:27 BUN/Creatinine Ratio 21.7 (10-20) H 12/02/21 05:37 Glucose 98 mg/dl (70-99(Fasting)) 12/02/21 05:37 Calcium 8.6 mg/dl (8.5-10.1) 12/02/21 05:37 Phosphorus 3.6 mg/dl (2.5-4.9) 12/02/21 05:37 Magnesium 1.7 mg/dl (1.7-2.4) 12/02/21 05:37 Total Bilirubin 1.9 mg/dl (0.2-1.0) H D 11/30/21 11:37 AST 36 U/L (13-39) 11/30/21 11:37 ALT 33 U/L (7-52) 11/30/21 11:37 Alkaline Phosphatase 130 U/L (34-104) H 11/30/21 11:37 Total Protein 7.3 gm/dl (6.0-8.3) 11/30/21 11:37 Albumin 4.6 gm/dl (3.4-5.0) 11/30/21 11:37 Globulin 2.7 gm/dl (2.5-4.0) 11/30/21 11:37 Albumin/Globulin Ratio 1.7 (0.9-2) 11/30/21 11:37 Vitamin B12 152 pg/ml (180-914) L 12/02/21 05:37 TSH 1.799 uIu/ml (0.300-4.500) 11/30/21 11:37 Urine Color Dark Yellow 11/30/21 11:01 Urine Appearance Clear (Clear) 11/30/21 11:01 Urine pH 5.5 (4.5-7.5) 11/30/21 11:01 Ur Specific [place] 1.018 (1.000-1.030) 11/30/21 11:01 Urine Protein Negative (Negative) 11/30/21 11:01 Urine Glucose (UA) Negative (Negative) 11/30/21 11:01 Urine Ketones 2+ (Negative) H 11/30/21 11:01 Urine Blood Negative (Negative) 11/30/21 11:01 Urine Nitrite Positive (Negative) A 11/30/21 11:01 Urine Bilirubin Negative (Negative) 11/30/21 11:01 Urine Urobilinogen Negative (Negative) 11/30/21 11:01 Ur Leukocyte Esterase Trace (Negative) H 11/30/21 11:01 Urine WBC (Auto) 5-10 /hpf (0-5) H 11/30/21 11:01 Urine RBC (Auto) 0-4 /hpf (0-4) 11/30/21 11:01 U Hyaline Cast (Auto) 1-5 /lpf (0-5) 11/30/21 11:01 U Epithel Cells (Auto) 5-10 /lpf (0-5) H 11/30/21 11:01 Urine Bacteria (Auto) 4+ (Negative) H 11/30/21 11:01 Fluid Comment 12/02/21 16:00 Synovial Source KNEE 12/02/21 16:00 Synovial Color YELLOW 12/02/21 16:00 Synovial Appearance CLOUDY 12/02/21 16:00 Synovial WBC 7533 /ul (0-200) H 12/02/21 16:00 Synovial RBC < 3000 /uL 12/02/21 16:00 Synovial Polynuclear % 86.2 % 12/02/21 16:00 Synovial Mononuclear % 13.8 % 12/02/21 16:00 Salicylates < 3.0 mg/dl (3.0-30) L 11/30/21 11:37 Urine Opiates Screen Neg (Neg) 11/30/21 11:01 Ur Methadone, Qual Neg (Neg) 11/30/21 11:01 Acetaminophen < 3 ug/ml (10-30) L 11/30/21 11:37 Urine Barbiturates Neg (Neg) 11/30/21 11:01 Ur Phencyclidine (PCP) Neg (Neg) 11/30/21 11:01 U Amphetamin/Meth Scrn Neg (Neg) 11/30/21 11:01 MDMA (Ecstasy) Screen Neg (Neg) 11/30/21 11:01 U Benzodiazepines Scrn Neg (Neg) 11/30/21 11:01 Ur Cocaine Metabolite Neg (Neg) 11/30/21 11:01 U Marijuana (THC) Screen Neg (Neg) 11/30/21 11:01 Ethyl Alcohol mg/dL < 10.0 mg/dl (<10.0) 11/30/21 11:37 Hepatitis C Ab (EIA) NON-REACTIVE (NON-REACTIVE) 12/01/21 06:51 Hep C Ab Signal/Cutoff 0.01 (<1.00) 12/01/21 06:51 SARS-CoV-2, RNA, NAAT NEGATIVE (NEGATIVE) 11/30/21 11:27 Impressions Chest X-Ray 11/30/21 17:53 XR chest 1V portable CLINICAL HISTORY: htn. COMPARISON STUDY: 10/20/2018 TECHNIQUE: 1 view of the chest FINDINGS: Single frontal view of the chest demonstrates the cardiomediastinal silhouette to be within normal limits. The lungs are clear of alveolar opacities. There is no evidence for pleural effusion. There is no evidence for vascular congestion. There is no acute osseous pathology. IMPRESSION: 1. No acute cardiopulmonary disease. ACT 112: Negative or not required by law. Electronically signed by: Tommy Elias M.D. 11/30/2021 6:07 PM Venous Doppler Study 12/02/21 08:20 LEFT LOWER EXTREMITY VENOUS DOPPLER HISTORY: Acute pain and swelling of the left lower leg r/o ruptured lopez's cyst, DVT COMPARISON STUDY: None. FINDINGS: There is normal compressibility, flow, and augmentation within the left lower extremity deep venous system. Limited visualization of the calf veins secondary to patient body habitus. IMPRESSION: No DVT within the left lower extremity. ACT 112: Negative or not required by law. Electronically signed by: Fernando Jansen M.D. 12/02/2021 9:40 AM Knee X-Ray 12/02/21 11:28 XR knee LT 4V CLINICAL HISTORY: left knee pain TECHNIQUE: 4 views of the left knee were obtained. Comparison: None available at the time of this dictation. FINDINGS: There is no evidence of an acute fracture. Joint spaces are well-preserved. A moderate suprapatellar effusion is seen. No soft tissue abnormality is seen. IMPRESSION: Suprapatellar effusion without evidence of underlying bony abnormality. ACT 112: Negative or not required by law. Electronically signed by: Mayo Ayoub M.D. 12/02/2021 12:53 PM
--- NOTE | 2021-12-03 12:20 | Hospitalist Progress Note ---
Date of Service December 03, 2021 Assessment & Plan (1) Acute gout of left knee: (2) E. coli UTI (urinary tract infection): (3) Depression: (4) Alcohol abuse: (5) Hypertensive urgency: (6) Scrotal hernia: (7) Tobacco use: Plan: Acute gout left knee pain- 1st episode. - S/p left knee aspiration 12/02- Synovial fluid analysis shows MSU crystals consistent with gout; not consistent with septic arthritis - No steroid was injected in the knee- Ortho recommended starting oral steroid or NSAIDs - Will start on prednisone 40 mg daily for 5 days and monitor for improvement - if recurs or does not improve, might need intraarticular steroid injection - Ice, PT eval, pain management E coli UTI - Urine culture from 11/28 and 11/30 with Ecoli pansensitive - Continue ceftriaxone D4. Will change to vantin at discharge. Depression/ anxiety - seen by [facility]- 1:1 discontinued; recommendations noted - started on zoloft 25 mg daily on 12/01 and increase to 50 mg daily in 5 days if tolerating well - started on naltrexone 12/01 for alcohol use disorder and repeat LFT in a month Alcohol abuse: denies any alcohol withdrawal complications in the past even when he was abstinent for 2 months. - continue AWSS protocol with prn ativan, thiamine, folate, naltrexone as above, declines inpatient alcohol rehab Hypertensive urgency: resolved. BP stable now. Continue norvasc lisinopril and monitor Right inguinal scrotal hernia: asymptomatic, chronic, worsening for years- currently stable and no indication for emergency intervention unless incarceration or strangulation which will need immediate intervention - seen by surgery- recommended OP follow up once infection cleared Tobacco use: smokes half ppd. declined nicotine patch. Vit B 12 def- B12 level 152. Started on im b12- change to po at discharge. DVT prophylaxis- sc lovenox Dispo- Pending better pain control for his acute gout left knee, PT eval pending. He declined alcohol rehab Admission and Anticipated Discharge Date Admission Date: November 30, 2021 Subjective Continues with left knee pain, minimally improved from yesterday. Had left knee aspiration yesterday which shows MSU crystals consistent with gout. No fever, chills, chest pain, shortness of breath. Physical Exam Physical Exam: General: Lying in bed, not in acute distress, on room air HEENT: EOMI, ADARSH, MMM Chest: Clear breath sounds bilaterally, no wheezes or crackles CVS: Regular rate and rhythm, normal heart sounds, no murmur Abdomen: Soft, non tender, not distended, normal bowel sounds Neuro: Awake, alert, oriented, conversing well, non focal Extremities: Left knee tenderness and effusion- ROM limited due to pain Psych: calm, cooperative Genitourinary exam not done Results & Data Results & Data ([facility]) Vital Signs (Past 12 Hours) Vital Signs Temp Pulse Pulse Resp BP Pulse Ox 12/03/21 11:00 36.8 C 68 18 145/85 H 94 12/03/21 07:39 36.8 C 79 19 157/103 H 94 12/03/21 06:14 74 12/03/21 03:11 36.6 C 72 18 158/100 H 94 Laboratory Results [facility] 12/03/21 05:27 Creatinine 0.97 Medications Administered Current Inpatient Medications Acetaminophen (Acetaminophen 325 Mg Tab) 650 mg PO Q4H PRN PRN Reason: Pain or Fever Stop: 12/30/21 20:45 Last Admin: 12/02/21 09:14 Dose: 650 mg Documented by: Amlodipine Besylate (Amlodipine Besylate 5 Mg Tab) 5 mg PO [facility] Stop: 12/31/21 08:59 Last Admin: 12/03/21 08:13 Dose: 5 mg Documented by: Cyanocobalamin (Cyanocobalamin 1000 Mcg/Ml Vial) 1,000 mcg IM [facility] Stop: 12/06/21 11:29 Last Admin: 12/03/21 08:13 Dose: 1,000 mcg Documented by: Diclofenac Sodium (Diclofenac Sod 1% Gel 100 Gm Tube) 2 gm EXT QID [facility] Stop: 01/01/22 12:59 Last Admin: 12/03/21 12:13 Dose: Not Given Documented by: Enoxaparin Sodium (Enoxaparin Inj 40 Mg/0.4 Ml Syr) 40 mg SQ [facility] Stop: 12/31/21 08:59 Last Admin: 12/03/21 08:15 Dose: 40 mg Documented by: Folic Acid (Folic Acid 1 Mg Tab) 1 mg PO [facility] Stop: 12/30/21 20:59 Last Admin: 12/03/21 08:13 Dose: 1 mg Documented by: Ceftriaxone Sodium 2,000 mg/ (Dextrose) 70 mls @ 100 mls/hr IV Q24H [facility]; Protocol Stop: 12/11/21 08:59 Last Infusion: 12/03/21 08:55 Dose: Infused Documented by: Lidocaine (Lidocaine 5% 1 Patch) 1 patch TD QAM [facility] Stop: 01/01/22 08:59 Last Admin: 12/03/21 08:16 Dose: Not Given Documented by: Lisinopril (Lisinopril 10 Mg Tab) 10 mg PO HS [facility] Stop: 12/30/21 20:59 Last Admin: 12/02/21 19:48 Dose: 10 mg Documented by: Lorazepam (Lorazepam 1 Mg Tab) 1 mg PO ONE PRN; Protocol PRN Reason: EtoH Withdrawal AWSS 6-10 Lorazepam (Lorazepam 1 Mg Tab) 1 - 3 mg PO UD PRN; Protocol PRN Reason: EtoH Withdrawal AWSS 6-10+ Stop: 12/30/21 20:45 Lorazepam (Lorazepam 2 Mg/1 Ml Vial) 1 mg IV UD PRN; Protocol PRN Reason: EtOH Withdrawl AWSS Score 6,7 Stop: 12/30/21 20:45 Lorazepam (Lorazepam 2 Mg/1 Ml Vial) 2 mg IV UD PRN; Protocol PRN Reason: EtOH Withdrawl AWSS Score 8,9 Stop: 12/30/21 20:45 Lorazepam (Lorazepam 2 Mg/1 Ml Vial) 3 mg IV ONCE PRN; Protocol PRN Reason: EtOH Withdrawl AWSS Score >=10 Stop: 12/30/21 20:45 Miscellaneous (Remove Lidoderm Patch) 1 ea N/A DAILY@2100 [facility] Stop: 01/01/22 20:59 Last Admin: 12/02/21 19:50 Dose: 1 ea Documented by: Naltrexone HCl (Naltrexone Hcl 50 Mg Tab) 50 mg PO DAILY [facility] Stop: 01/01/22 08:59 Last Admin: 12/03/21 08:13 Dose: 50 mg Documented by: Prednisone (Prednisone 20 Mg Tab) 40 mg PO DAILY [facility] Stop: 12/08/21 08:59 Last Admin: 12/03/21 09:51 Dose: 40 mg Documented by: Sertraline HCl (Sertraline Hcl 50 Mg Tablet) 25 mg PO QAM [facility] Stop: 01/01/22 08:59 Last Admin: 12/03/21 08:13 Dose: 25 mg Documented by: Thiamine HCl (Thiamine Hcl 100 Mg Tab) 100 mg PO QAM [facility] Stop: 12/30/21 20:59 Last Admin: 12/03/21 08:13 Dose: 100 mg Documented by: (1) Depression Depression Type: unspecified Qualified Code(s): F32.A - Depression, unsp ecified
[2021-12-03] MEDS: lisinopril 10 MG TAB PO SCH (19:49)
[2021-12-04] MEDS: cefTRIAXone SODIUM 2,000 MG in DEXTROSE 5% 50 ML IV SCH (08:01)
[2021-12-04] MEDS: ENOXAPARIN INJ 40 MG/0.4 ML SYR SQ SCH (08:03)
[2021-12-04] MEDS: SERTRALINE HCL 50 MG TABLET PO SCH (08:03)
[2021-12-04] MEDS: THIAMINE HCL 100 MG TAB PO SCH (08:04)
[2021-12-04] MEDS: NALTREXONE HCL 50 MG TAB PO SCH (08:04)
[2021-12-04] MEDS: amLODIPine BESYLATE 5 MG TAB PO SCH (08:04)
[2021-12-04] MEDS: FOLIC ACID 1 MG TAB PO SCH (08:04)
[2021-12-04] MEDS: DICLOFENAC SOD 1% GEL 100 GM TUBE EXT SCH ×2 (08:05→12:04)
[2021-12-04] MEDS: LIDOCAINE 5% 1 PATCH TD SCH (08:06)
[2021-12-04] MEDS: CYANOCOBALAMIN 1000 MCG/ML VIAL IM SCH (08:45)
[2021-12-04] MEDS: predniSONE 20 MG TAB PO SCH (08:45)
--- NOTE | 2021-12-04 14:01 | Discharge Summary ---
Date of Service December 04, 2021 Admission HPI Per Admitting Provider 66-year-old man with history of alcohol abuse, active smoker who presents to the ER reporting increased anxiety and depression. Patient was recently seen in the ER over the weekend and discharged home. Patient reports he drinks about 6-8 wine/liquor daily. Last drink was 2 days ago [Tuesday afternoon]. Reports that he is in the middle of moving apartments. Reports some mild tremors earlier that is currently controlled. Denied any headache, dizziness or hallucinations. Denied nausea, vomiting, abd pain Reports he has been having anxiety and depression for the past couple of months but has been worsening recently. Reports depression, reports occasional suicidal thoughts but states that he does not dwell on it or have any active plans. Denies homicidal ideation. Reports that some days he feels lazy to get out of bed. Reports he gets good sleep but usually in short bouts. Reports he has good appetite when he goes out to eat but not at home. 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 Reports he has not seen any psychiatrist in the past for his anxiety and depression but open to being evaluated by psychiatrist now. Patient smokes half a pack of cigarettes per day. Denies illicit drug use. Reports family history of high blood pressure in both parents Reports he has had some surgeries in the past for cyst excision in neck. Patient denies any home medication at this time. Reported he has not seen PCP in years. Reports scrotal hernia that has been worsening over the past couple of years Admission Exam Per Admitting Provider Constitutional: + well hydrated; no acute distress Eyes: PERRL, conjunctivae normal, anicteric sclerae ENMT: external ear and nose normal, oropharynx normal Respiratory: normal respiratory effort, lungs clear to auscultation Cardiovascular: Rate/Rhythm: regular rate and regular rhythm S1 S2 Gastrointestinal (Abdomen): normal bowel sounds, soft, nontender, no hepatosplenomegaly Musculoskeletal: no cyanosis or clubbing, extremities motor strength 5/5 No pedal edema Neurologic: PERRL, EOMI, accommodation nl, no face palsy, no dysarthria Psychiatric: Orientation: alert and oriented x 3 Flat affect Genitourinary: Massive scrotal hernia. Principal Diagnosis E coli UTI, Acute gout left knee, Hypertensive urgency, Alcohol abuse, Depression, Vitamin B12 deficiency Discharge Exam General: Lying in bed, not in acute distress, on room air HEENT: EOMI, ADARSH, MMM Chest: Clear breath sounds bilaterally, no wheezes or crackles CVS: Regular rate and rhythm, normal heart sounds, no murmur Abdomen: Soft, non tender, not distended, normal bowel sounds Neuro: Awake, alert, oriented, conversing well, non focal Extremities: Left knee covered with ZAN wrap- tenderness and ROM improving Psych: calm, cooperative Genitourinary exam not done but scrotal swelling noted from outside his gown Discharge Data Allergies Allergy/AdvReac Type Severity Reaction Status Date / Time No Known Allergies Allergy Verified 11/28/21 22:49 Consultations 11/30/21 18:33 ED Decision to Admit Stat 11/30/21 20:46 Consult General Surgery Routine Consult Psychiatry Routine 11/30/21 21:20 Consult Behavioral Health Liaison Routine 12/02/21 13:47 Consult Orthopedic Surgery Routine Ordered Studies 12/02/21 08:20 US venous doppler LE LT Routine Laboratory Results WBC 6.88 K/uL (4.8-10.8) 12/02/21 05:37 RBC 4.27 M/uL (4.7-6.1) L 12/02/21 05:37 Hgb 15.2 g/dL (14.0-18.0) 12/02/21 05:37 Hct 44.6 % (42-52) 12/02/21 05:37 MCV 104.4 fL (80-100) H 12/02/21 05:37 MCH 35.6 pg (25-34) H 12/02/21 05:37 MCHC 34.1 g/dL (32-36) 12/02/21 05:37 RDW Std Deviation 53.1 fL (36.4-46.3) H 12/02/21 05:37 RDW Coeff of T[place] 14.0 % (11.5-14.5) 12/02/21 05:37 Plt Count 90 K/uL (130-400) L 12/02/21 05:37 MPV 9.8 fL (7.4-10.4) 12/02/21 05:37 Immature Gran % (Auto) 0.2 % 11/30/21 11:37 Neut % (Auto) 80.3 % 11/30/21 11:37 Lymph % (Auto) 11.2 % 11/30/21 11:37 [place] % (Auto) 7.8 % 11/30/21 11:37 Eos % (Auto) 0.3 % 11/30/21 11:37 Baso % (Auto) 0.2 % 11/30/21 11:37 Neut # (Auto) 5.18 K/uL (1.4-6.5) 11/30/21 11:37 Lymph # (Auto) 0.72 K/uL (1.2-3.4) L 11/30/21 11:37 [place] # (Auto) 0.50 K/uL (0.11-0.59) 11/30/21 11:37 Eos # (Auto) 0.02 K/uL (0-0.5) 11/30/21 11:37 Baso # (Auto) 0.01 K/uL (0-0.2) 11/30/21 11:37 Immature Gran # (Auto) 0.01 K/uL (0.00-0.02) 11/30/21 11:37 Platelet Estimate Decreased (Normal) L 12/02/21 05:37 Sodium 138 mmol/L (136-145) 12/02/21 05:37 Potassium 3.5 mmol/L (3.5-5.1) 12/02/21 05:37 Chloride 105 mmol/L (98-107) 12/02/21 05:37 Carbon Dioxide 26 mmol/L (21-32) 12/02/21 05:37 Anion Gap 7 (3-11) 12/02/21 05:37 BUN 26 mg/dl (6-23) H 12/02/21 05:37 Creatinine 0.97 mg/dl (0.6-1.4) 12/03/21 05:27 Est Cr Clr Drug Dosing 94.9 ml/min 12/03/21 05:27 Est GFR ( Amer) 93.2 ml/min 12/03/21 05:27 Est GFR (Non-Af Amer) 80.5 ml/min 12/03/21 05:27 BUN/Creatinine Ratio 21.7 (10-20) H 12/02/21 05:37 Glucose 98 mg/dl (70-99(Fasting)) 12/02/21 05:37 Calcium 8.6 mg/dl (8.5-10.1) 12/02/21 05:37 Phosphorus 3.6 mg/dl (2.5-4.9) 12/02/21 05:37 Magnesium 1.7 mg/dl (1.7-2.4) 12/02/21 05:37 Total Bilirubin 1.9 mg/dl (0.2-1.0) H D 11/30/21 11:37 AST 36 U/L (13-39) 11/30/21 11:37 ALT 33 U/L (7-52) 11/30/21 11:37 Alkaline Phosphatase 130 U/L (34-104) H 11/30/21 11:37 Total Protein 7.3 gm/dl (6.0-8.3) 11/30/21 11:37 Albumin 4.6 gm/dl (3.4-5.0) 11/30/21 11:37 Globulin 2.7 gm/dl (2.5-4.0) 11/30/21 11:37 Albumin/Globulin Ratio 1.7 (0.9-2) 11/30/21 11:37 Vitamin B12 152 pg/ml (180-914) L 12/02/21 05:37 TSH 1.799 uIu/ml (0.300-4.500) 11/30/21 11:37 Urine Color Dark Yellow 11/30/21 11:01 Urine Appearance Clear (Clear) 11/30/21 11:01 Urine pH 5.5 (4.5-7.5) 11/30/21 11:01 Ur Specific [place] 1.018 (1.000-1.030) 11/30/21 11:01 Urine Protein Negative (Negative) 11/30/21 11:01 Urine Glucose (UA) Negative (Negative) 11/30/21 11:01 Urine Ketones 2+ (Negative) H 11/30/21 11:01 Urine Blood Negative (Negative) 11/30/21 11:01 Urine Nitrite Positive (Negative) A 11/30/21 11:01 Urine Bilirubin Negative (Negative) 11/30/21 11:01 Urine Urobilinogen Negative (Negative) 11/30/21 11:01 Ur Leukocyte Esterase Trace (Negative) H 11/30/21 11:01 Urine WBC (Auto) 5-10 /hpf (0-5) H 11/30/21 11:01 Urine RBC (Auto) 0-4 /hpf (0-4) 11/30/21 11:01 U Hyaline Cast (Auto) 1-5 /lpf (0-5) 11/30/21 11:01 U Epithel Cells (Auto) 5-10 /lpf (0-5) H 11/30/21 11:01 Urine Bacteria (Auto) 4+ (Negative) H 11/30/21 11:01 Fluid Comment 12/02/21 16:00 Synovial Source KNEE 12/02/21 16:00 Synovial Color YELLOW 12/02/21 16:00 Synovial Appearance CLOUDY 12/02/21 16:00 Synovial WBC 7533 /ul (0-200) H 12/02/21 16:00 Synovial RBC < 3000 /uL 12/02/21 16:00 Synovial Polynuclear % 86.2 % 12/02/21 16:00 Synovial Mononuclear % 13.8 % 12/02/21 16:00 Synovial Crystals 12/02/21 16:00 Salicylates < 3.0 mg/dl (3.0-30) L 11/30/21 11:37 Urine Opiates Screen Neg (Neg) 11/30/21 11:01 Ur Methadone, Qual Neg (Neg) 11/30/21 11:01 Acetaminophen < 3 ug/ml (10-30) L 11/30/21 11:37 Urine Barbiturates Neg (Neg) 11/30/21 11:01 Ur Phencyclidine (PCP) Neg (Neg) 11/30/21 11:01 U Amphetamin/Meth Scrn Neg (Neg) 11/30/21 11:01 MDMA (Ecstasy) Screen Neg (Neg) 11/30/21 11:01 U Benzodiazepines Scrn Neg (Neg) 11/30/21 11:01 Ur Cocaine Metabolite Neg (Neg) 11/30/21 11:01 U Marijuana (THC) Screen Neg (Neg) 11/30/21 11:01 Ethyl Alcohol mg/dL < 10.0 mg/dl (<10.0) 11/30/21 11:37 Hepatitis C Ab (EIA) NON-REACTIVE (NON-REACTIVE) 12/01/21 06:51 Hep C Ab Signal/Cutoff 0.01 (<1.00) 12/01/21 06:51 SARS-CoV-2, RNA, NAAT NEGATIVE (NEGATIVE) 11/30/21 11:27 Impressions Chest X-Ray 11/30/21 17:53 XR chest 1V portable CLINICAL HISTORY: htn. COMPARISON STUDY: 10/20/2018 TECHNIQUE: 1 view of the chest FINDINGS: Single frontal view of the chest demonstrates the cardiomediastinal silhouette to be within normal limits. The lungs are clear of alveolar opacities. There is no evidence for pleural effusion. There is no evidence for vascular congestion. There is no acute osseous pathology. IMPRESSION: 1. No acute cardiopulmonary disease. ACT 112: Negative or not required by law. Electronically signed by: Tommy Elias M.D. 11/30/2021 6:07 PM Venous Doppler Study 12/02/21 08:20 LEFT LOWER EXTREMITY VENOUS DOPPLER HISTORY: Acute pain and swelling of the left lower leg r/o ruptured lopez's cyst, DVT COMPARISON STUDY: None. FINDINGS: There is normal compressibility, flow, and augmentation within the left lower extremity deep venous system. Limited visualization of the calf veins secondary to patient body habitus. IMPRESSION: No DVT within the left lower extremity. ACT 112: Negative or not required by law. Electronically signed by: Fernando Jansen M.D. 12/02/2021 9:40 AM Knee X-Ray 12/02/21 11:28 XR knee LT 4V CLINICAL HISTORY: left knee pain TECHNIQUE: 4 views of the left knee were obtained. Comparison: None available at the time of this dictation. FINDINGS: There is no evidence of an acute fracture. Joint spaces are well-preserved. A moderate suprapatellar effusion is seen. No soft tissue abnormality is seen. IMPRESSION: Suprapatellar effusion without evidence of underlying bony abnormality. ACT 112: Negative or not required by law. Electronically signed by: Mayo Ayoub M.D. 12/02/2021 12:53 PM Hospital Course (1) Acute gout of left knee: (2) E. coli UTI (urinary tract infection): (3) Depression: (4) Alcohol abuse: (5) Hypertensive urgency: (6) Scrotal hernia: (7) Tobacco use: Acute gout left knee pain- 1st episode. ?related to his alcohol abuse but did not occur until D3 of admission. - S/p left knee aspiration 12/02- Synovial fluid analysis shows MSU crystals consistent with gout; synovial culture negative, not consistent with septic arthritis - No steroid was injected in the knee- Ortho recommended starting oral steroid or NSAIDs - Started on oral prednisone 40 mg daily- continue for 4 more days- Recommend NSAIDs and/or colchicine if does not completely resolve by then or follow up with ortho for intraarticular steroid injection- follow up with PCP to initiate preventive medication like allopurinol along with repeat uric acid - Continue ice, ZAN wrap, weight bearing as tolerated. Seen by PT- recommended walker however patient feels he really does not need a walker and would rather go to rehab. Expect improvement of his gout with steroid treatment and expect ambulation to improve significantly with treatment - Recommended complete alcohol cessation- further dietary recommendations and instructions attached E coli UTI - Urine culture from 11/28 and 11/30 with Ecoli pansensitive - S/p ceftriaxone D4- continue vantin for 3 more days. Depression/ anxiety - seen by [facility]- 1:1 discontinued; recommendations noted - started on zoloft 25 mg daily on 12/01- Can increase to 50 mg daily in 5-7 days if tolerating well - started on naltrexone 12/01 for alcohol use disorder- can increase to 100 mg daily in 1 week if tolerating without issues- recommended repeat LFTs in a month and at least annually- Stop naltrexone if LFTs > 3-5 times normal limit. Alcohol abuse: denies any alcohol withdrawal complications in the past even when he was abstinent for 2 months. - no withdrawal symptoms, no ativan required, continue thiamine, folate, naltrexone as above - Discharging to [facility] Hypertensive urgency: resolved. BP stable now. Started on norvasc lisinopril- continue and follow up with PCP for further management Right inguinal scrotal hernia: asymptomatic, chronic, worsening for years- currently stable and no indication for emergency intervention unless incarceration or strangulation which will need immediate intervention - seen by surgery- recommended OP follow up once infection cleared Tobacco use: smokes half ppd. declined nicotine patch. Vit B 12 def- B12 level 152. S/p intramuscular b12 injection x3 doses- continue oral B12 supplementation at discharge. F/u with PCP He is comfortable and stable for discharge. Total Time Total Time Spent Total Time Spent (In Minutes): 50 Discharge Plan Discharge Items Patient Disposition: Drug & Alcohol Rehab Reason For Visit: HTN URGENCY, DEPRESSION Discharge Diagnosis: E coli UTI, Acute gout left knee, Depression Activity: Resume your previous activity Non-emergency contact: Primary Care Provider Call non-emergency contact if: you have any medication questions, your symptoms worsen, your pain is not controlled and you have a fever Follow-up/Referrals: PCP,RICHARD [Primary Care Provider] - Diet: Heart Healthy Addsharif Attending Provider Instructions: Continue the antibiotic vantin twice daily for 3 more days for urinary tract infection We have started you on norvasc and lisinopril for your blood pressure Continue prednisone for 4 more days for the gout attack- If it does not completely resolve, you can take over the counter pain medications like aleve, motrin etc. Avoid alcohol completely to prevent further gout attacks. Please review the information attached Recommend follow up with family doctor to start on the medication like allopurinol to prevent future gout attacks. Continue vitamin B12 supplementation as your vitamin B12 level is low. 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 He was also started on naltrexone for alcohol use disorder. He is taking 50mg daily, if well tolerated this could be increased to 100mg in one week. Recommend repeat LFTs in 1 month and at least annually. Stop if LFTs > 3-5 times normal limit. If he becomes interested recommend he does outpatient dual diagnosis therapy at [facility]. Pending Studies at Discharge: No Stand-Alone Forms: My dooub, Smoking Cessation Skilled Items Patient informed of condition?: Yes DNR: No Discharge Level of Care: Other Communicable Disease: No Discharge Prognosis: Stable Lines: None Urinary Catheter: No Medications and DC Order Prescriptions: New naltrexone 50 mg Tablet 50 mg PO DAILY Qty: 30 RF: 0 amlodipine [Norvasc] 5 mg Tablet 5 mg PO QAM Qty: 30 RF: 0 lisinopril 10 mg Tablet 10 mg PO HS Qty: 30 RF: 0 prednisone 20 mg Tablet 40 mg PO DAILY 4 Days Qty: 8 RF: 0 thiamine HCl (vitamin B1) 100 mg Tablet 100 mg PO QAM Qty: 30 RF: 0 folic acid 1 mg Tablet 1 mg PO QAM Qty: 30 RF: 0 cefpodoxime 200 mg tablet 200 mg PO BID Qty: 6 RF: 0 cyanocobalamin (vitamin B-12) 1,000 mcg capsule 1,000 mcg PO DAILY Qty: 30 RF: 0 sertraline 50 mg Tablet 25 mg PO QAM Qty: 30 RF: 0 No Action No Known Home Medications RF: 0 Discharge Orders: Discharge Order (Routine); Ordered 12/04/21 Ordered By: Juan Dela Cruz/Other Patient Handouts: ED Gout, ED Gout Diet Admission Data Admit Date/Time: 11/30/21 19:19 Attending Provider: Juan Bales Admit Provider: Janneth Jauregui I. Primary Care Provider: PCP,NO Other Providers: Janneth Jauregui I. ; Won Michael ; Lucy Pelletier ; Priyanka Armijo ; Luly Salazar ; Yohannes Collazo Other Interventions: Discharge Summary Assessment (RN) Last Done: 12/04/21 13:11
[2021-12-06 02:42] LABS: Lyme DNA PCR CSF or Synovial Not detected (Not Detected); Lyme DNA Source Synovial Fluid
== END 2021-12-04 14:00 | disposition alcohol treatment (31) | DRG 897 ==
LOC: ED 10:35 → SUATTDRO 19:19 → 2S 19:19